=== PATIENT | female | born 1960 | race Caucasian/White ===

== ENCOUNTER 2020-11-24 14:54 | Outpatient (REF) | payer MEDICAID, SELFPAY ==
--- NOTE | ~2020-11-24 | MM_ITS ---
EXAMINATION: MM SCREENING DIGITAL BREAST TOMOSYNTHESIS, BILATERAL CLINICAL INFORMATION: Screening. Asymptomatic. Benign left ultrasound guided biopsy 03/07/2019 (benign lymph node). The lifetime risk of breast cancer based on the Tyrer-Cuzick Model is 8%. COMPARISON: Mammography: 03/07/2019, 02/26/2019 (new baseline). TECHNIQUE: Digital breast tomosynthesis is performed in both the craniocaudal and mediolateral oblique views along with computer-aided detection (CAD). Synthesized 2D images are generated from the tomosynthesis. FINDINGS: There are scattered areas of fibroglandular density (ACR BI-RADS breast composition Category b). Breast tissue composition borders on heterogeneously dense. Parenchymal pattern is similar to prior exam. There is biopsy clip marker overlying benign nodule consistent with intramammary node anterior upper outer left breast. There is a benign coarse calcification anterior 1:00 left breast. Some other scattered punctate benign calcifications are again seen in each breast. The axilla and skin contours are unremarkable. MM/MM tomosynthesis screening BI IMPRESSION: No mammographic evidence of malignancy. ASSESSMENT: BI-RADS 2: Benign RECOMMENDATION: Routine annual mammography screening. This patient's information was entered into a reminder system with a target due date for their next mammogram.
== END 2020-11-24 14:55 | disposition home or self-care (01) ==
LOC: HO.MAMMO 14:54
PROVIDERS: Visit Provider Internal Medicine
DX: Z12.31 Encounter for screening mammogram for malignant neoplasm of breast (principal)
CPT/HCPCS: 77063; 77067

== ENCOUNTER 2021-09-07 14:01 | Outpatient (REF) | payer MEDICAID, SELFPAY ==
[2021-09-07 15:22] LABS: MANUAL DIFF FLAG NO
[2021-09-07 16:05] LABS: Basophils Absolute Auto 0.1 X10*3/uL (0.0-0.2); Basophils Percent Auto 0.4 % (0-2); Eosinophils Absolute Auto 0.1 X10*3/uL (0.0-0.4); Eosinophils Percent Auto 0.4 % (0-4); Hematocrit 46.4 % (37.0-47.0); Hemoglobin 15.4 g/dl (12.0-16.0); Imm Gran Abs Auto 0.05 X10*3/uL (0.00-0.03); Imm Gran Pct Auto 0.4 % (0.0-0.4); Lymphocytes Absolute Auto 1.8 X10*3/uL (1.2-4.9); Lymphocytes Percent Auto 15.2 % (20-40); Mean Corpuscular HGB Conc 33.2 g/dl (31.0-35.0); Mean Corpuscular Hemoglobin 30.4 pg (27.0-33.0); Mean Corpuscular Volume 91.5 fL (80.0-98.0); Mean Platelet Volume 9.8 fL (9.4-12.3); Monocytes Absolute Auto 0.6 X10*3/uL (0.1-1.2); Monocytes Percent Auto 5.2 % (2-11); Neutrophils Absolute Auto 9.3 x10*3/uL (2.0-8.3); Neutrophils Percent Auto 78.4 % (45-73); Platelet Count 230 X10*3/uL (160-400); Red Blood Count 5.07 X10*6/uL (4.20-5.50); Red Cell Distribution Width 12.9 % (11.0-16.0); White Blood Count 11.8 X10*3/uL (4.8-10.8)
[2021-09-07 16:28] LABS: Alanine Aminotransferase 22 U/L (0-31); Albumin Level 4.7 g/dL (3.5-5.0); Alkaline Phosphatase 66 U/L (39-117); Anion Gap 14 (12-20); Aspartate Amino Transferase 22 U/L (5-31); Bilirubin Total 0.7 mg/dL (0.0-1.0); Blood Urea Nitrogen 14 mg/dL (9-16); C Reactive Protein 1.99 mg/dL (< or = 0.50); Calcium 10.1 mg/dL (8.4-10.2); Carbon Dioxide 28 mmol/L (22-29); Chloride 103 mmol/L (96-108); Estimated Glomerular Filt Rate > 60; Glucose Random 117 mg/dL (60-115); Potassium 4.8 mmol/L (3.3-5.1); Sodium 140 mmol/L (135-145); Total Protein 7.8 g/dL (6.5-8.0)
[2021-09-07 16:51] LABS: TSH reflex Free T4 2.38 uIU/mL (0.32-4.0)
[2021-09-09 21:17] LABS: Transglutaminase Ab IgG <1.0 U/mL; Transglutaminase IgA <1.0 U/mL
== END 2021-09-07 14:02 | disposition home or self-care (01) ==
LOC: HO.LAB 14:01
PROVIDERS: PCP Internal Medicine; Referring Provider Internal Medicine; Visit Provider Nurse Practitioner
DX: R19.7 Diarrhea, unspecified (principal); R10.9 Unspecified abdominal pain; N30.11 Interstitial cystitis (chronic) with hematuria
CPT/HCPCS: 36415; 80053; 84443; 85025; 86003; 86140; 86364; 99202

== ENCOUNTER 2021-10-19 14:18 | Outpatient (REF) | payer MEDICAID, SELFPAY ==
[2021-10-19 16:21] LABS: Appearance Urine CLEAR; Color Urine YELLOW; Glucose Urine UA NEG (NEG); Leukocyte Esterase Urine TRACE (NEG); Nitrite Urine NEG (NEG); UACC Culture Trigger NO; Urine Blood 1+ (NEG); Urine Ketones NEG (NEG); Urine Protein NEG (NEG-TRACE)
[2021-10-19 16:43] LABS: Squamous Epithelial Cell Urine TRACE /LPF; WBC Urine 0-2 /HPF (0-4)
== END 2021-10-19 14:19 | disposition home or self-care (01) ==
LOC: HO.LAB 14:18
PROVIDERS: PCP Internal Medicine; Referring Provider Internal Medicine; Visit Provider Nurse Practitioner
DX: R19.7 Diarrhea, unspecified (principal); R79.82 Elevated C-reactive protein (CRP)
CPT/HCPCS: 81001; 99212

== ENCOUNTER 2021-11-11 15:21 | Outpatient (REF) | payer MEDICAID, SELFPAY ==
[2021-11-17 00:12] LABS: Calprotectin, Fecal 8 mcg/g
== END 2021-11-11 15:22 | disposition home or self-care (01) ==
LOC: HO.LNP 15:21
PROVIDERS: Visit Provider Nurse Practitioner
DX: R19.7 Diarrhea, unspecified (principal)
CPT/HCPCS: 83993

== ENCOUNTER → 2021-11-26 16:12 | Outpatient (BNVA) | payer MEDICAID, SELFPAY | PROVIDERS: PCP Internal Medicine; Visit Provider Nurse Practitioner | DX: R19.7 Diarrhea, unspecified (principal); N30.11 Interstitial cystitis (chronic) with hematuria | CPT/HCPCS: 99212 ==

== ENCOUNTER → 2022-02-03 14:38 | Outpatient (BNVA) | payer MEDICAID, SELFPAY | PROVIDERS: PCP Internal Medicine; Visit Provider Nurse Practitioner | DX: R19.7 Diarrhea, unspecified (principal); R10.9 Unspecified abdominal pain; N30.11 Interstitial cystitis (chronic) with hematuria | CPT/HCPCS: 99212 ==

== ENCOUNTER → 2022-04-07 15:40 | Outpatient (BNVA) | payer MEDICAID, SELFPAY | PROVIDERS: PCP Internal Medicine; Referring Provider Internal Medicine; Visit Provider Nurse Practitioner | DX: R19.7 Diarrhea, unspecified (principal); R10.9 Unspecified abdominal pain; R79.82 Elevated C-reactive protein (CRP); Z53.20 Procedure and treatment not carried out because of patient's decision for unspecified reasons | CPT/HCPCS: 99212 ==

== ENCOUNTER → 2022-09-22 15:55 | Outpatient (BNVA) | payer MEDICAID, SELFPAY | PROVIDERS: PCP Internal Medicine; Visit Provider Nurse Practitioner | DX: R19.7 Diarrhea, unspecified (principal) | CPT/HCPCS: 99212 ==

== ENCOUNTER → 2022-11-17 15:27 | Outpatient (BNVA) | payer MEDICAID, SELFPAY | PROVIDERS: PCP Internal Medicine; Visit Provider Nurse Practitioner | DX: R19.7 Diarrhea, unspecified (principal) | CPT/HCPCS: 99212 ==

== ENCOUNTER 2023-03-08 14:24 | Outpatient (AMB) | payer MEDICAID, SELFPAY ==
--- NOTE | 2023-03-08 14:32 | MHC.OFFVIS ---
Intake Vital Signs 03/08/23 14:59 Height 5 ft 3 in Weight 173 lb 4.533 oz BMI 30.7 BP 154/70 H Blood Pressure Location Lt brachial Position Sitting Pulse 71 Intake Visit Reasons: 3 mnth follow up Intake Note: Patient presents to in office visit today in 3 months follow up of abdominal pain. CC: Patient reports she's had more constipation lately and having trouble swallowing pills. She also reports occasional abdominal pain. Denies other GI symptoms today. [employer] Airspace Control Officer Required: No Accompanied by: Self / Same As Patient Allergies procaine [From NOVOCAIN] Allergy (Severe, Verified 03/08/23 15:08) ANGIOEDEMA latex [LATEX] Allergy (Intermediate, Verified 03/08/23 15:08) RASH nylon Allergy (Intermediate, Verified 03/08/23 15:08) Anaphylaxis penicillin V Allergy (Unknown, Verified 03/08/23 15:08) Abdominal Pain iodine Adverse Reaction (Severe, Verified 03/08/23 15:08) cramps dicyclomine Adverse Reaction (Intermediate, Verified 03/08/23 15:08) Dizziness Latex Gloves Allergy (Unknown, Uncoded 11/26/21 16:17) Hives Novocain Allergy (Unknown, Uncoded 11/26/21 16:17) swelling HPI 3 mnth follow up HPI Details Assessment & Plan (1) Diarrhea: Code(s): R19.7 - Diarrhea, unspecified Plan: She is doing better on the creon, her stools are mostly soft and she only has occasional diarrhea. She also is taking the Carafate 3 a day. We discuss the effects of alcohol sugars on IBS and she was unaware of this and does use some sugar free products. We also discussed FODMAP diet now this also can contribute to bowel irritability. She is willing to experiment and look into these things and continue with her current regimen. ROV 3 mos. TODAY'S VISIT She has not had any diarrhea! However, she has occasional CIC. She has trouble swallowing the carafate so we discuss crushing or dissolving it - but I also think we should cut this back since she is having more CIC. She also continues on her creon. She is managing her CIC with prune juice which she likes. She has been taking IB guard at night, and since she is gassy I suggest simethicone otc. 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 ROV 6 mos. [facility] Surgical History H/O adenoidectomy H/O breast biopsy Family History Mother Colon cancer Social History (Updated 03/08/23 @ 15:07 by CAROLANN Meza) Alcohol intake: former Patient Tobacco Use Status: Never used Tobacco Review of Systems Const Denies fatigue, Denies fever(s), Denies night sweats, Denies poor appetite and Denies weight loss Eyes Details: glasses Reports requires corrective lenses ENT Reports Normal hearing present, Denies dental pain, Denies dysphagia, Denies hearing loss, Denies mouth pain, Denies odynophagia, Denies throat swelling, Denies tongue swelling and Reports other (Dentition adequate) Card Reports no additional complaints Resp Reports no additional complaints GI Denies abdominal pain, Denies melena, Reports bloating, Denies hematochezia, Reports constipation, Denies GI cramping, Denies dysphagia, Denies excessive flatus, Denies early satiety, Denies heartburn, Denies diarrhea, Denies nausea, Denies odynophagia, Denies vomiting and Denies hematemesis Skin/Breast Denies pruritus, Denies lesions, Denies rash and Denies jaundice Neuro Reports Normal hearing present and Denies Abnormal speech present Endo Denies fatigue Aller/Immun Denies throat swelling and Denies tongue swelling Physical Exam Vital Signs: Last Vital Signs Pulse 71 03/08/23 14:59 BP 154/70 H 03/08/23 14:59 BMI result Body Mass Index 30.7 Const General: cooperative, no acute distress, well developed and well groomed Nutritional Appearance: well nourished and obese Orientation/consciousness: oriented to person, oriented to place and oriented to time Limitations: No language barrier HEENT Head: Yes normocephalic and Yes atraumatic Eyes General: appearance normal, both eyes and all related structures Pupils: Equal, round and reactive pupils present Neck Neck: Yes normal visual inspection and Yes no lymphadenopathy Thyroid: Thyroid normal Resp Effort & Inspection: normal respiratory effort and able to speak in complete sentences Auscultation: clear to auscultation bilaterally Cardio Rate: regular rate Rhythm: regular rhythm Heart sounds: Normal, physiologic split S2 sound present Peripheral pulses: radial pulses present and posterior tibial pulses present GI Inspection: No distended, No Abdominal panniculus present and Yes obesity Palpation (GI): Soft to palpation, nontender, no guarding, not rigid and No hepatosplenomegaly present Percussion: Yes normal to percussion Auscultation: normal bowel sounds Rectal Exam - Female: deferred Skin General skin exam: no rashes or lesions noted, turgor normal, skin not dry, no jaundice, No spider nevi and no striae Rashes: no rashes Nails: normal Neuro General: oriented to person, oriented to place and oriented to time Cranial nerves: Yes Equal, round and reactive pupils present and Yes Normal hearing present Speech: No Abnormal speech present Extrem General: Yes normal to inspection, No clubbing, No cyanosis and No edema Psych Appearance: grossly normal and well kempt Mental Status: mental status grossly normal Speech and movement: Normal speech and movement present Affect: normal affect Attitude: cooperative Thought process: Normal thought process present and not confabulating Thought content: Normal thought content present Insight: Fair insight present (Psych) Judgement: Fair judgement present (Psych) Assessment & Plan Assessment & Plan (1) Diarrhea: Code(s): R19.7 - Diarrhea, unspecified Plan: She has not had any diarrhea! However, she has occasional CIC. She has trouble swallowing the carafate so we discuss crushing or dissolving it - but I also think we should cut this back since she is having more CIC. She also continues on her creon. She is managing her CIC with prune juice which she likes. She has been taking IB guard at night, and since she is gassy I suggest simethicone otc. 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 ROV 6 mos. (2) Colonoscopy refused: Comment: r/t fear of her nylon allergy - waiting for Cologuard coverage Code(s): Z53.20 - Procedure and treatment not carried out because of patient's decision for unspecified reasons (3) Elevated C-reactive protein (CRP): Comment: Stool calprotectin not elevated so this is not from a GI system aeb Code(s): R79.82 - Elevated C-reactive protein (CRP) Medications: Refilled [id number] 36,000-114,000- 180,000 unit (Creon) administer with meals and/or snacks 1 cap PO QID 120 caps 6RF R19.7 - Diarrhea, unspecified sucralfate 3 grams (3 x 1 gram) PO DAILY 90 tabs 6RF R19.7 - Diarrhea, unspecified Coding Level of Care Code Est Pt Level 3 (30247) Diagnoses Diarrhea R19.7 Colonoscopy refused Z53.20 Elevated C-reactive protein (CRP) R79.82
[2023-03-08 14:59] VITALS: BP 154/70; PULSE 71; BMI 30.7
== END 2023-03-08 15:19 | disposition home or self-care (01) ==
PROVIDERS: PCP Internal Medicine; Visit Provider Nurse Practitioner
DX: R19.7 Diarrhea, unspecified (principal); Z53.20 Procedure and treatment not carried out because of patient's decision for unspecified reasons; R79.82 Elevated C-reactive protein (CRP)
CPT/HCPCS: 99213

== ENCOUNTER → 2023-03-08 14:24 | Outpatient (BNVA) | payer MEDICAID, SELFPAY | PROVIDERS: PCP Internal Medicine; Visit Provider Nurse Practitioner | DX: R19.7 Diarrhea, unspecified (principal); R79.82 Elevated C-reactive protein (CRP); Z53.20 Procedure and treatment not carried out because of patient's decision for unspecified reasons | CPT/HCPCS: 99212 ==

== ENCOUNTER 2023-09-07 15:01 | Outpatient (AMB) | payer MEDICAID, SELFPAY ==
--- NOTE | 2023-09-07 15:03 | MHC.OFFVIS ---
Intake Vital Signs 09/07/23 15:14 Height 5 ft 3 in Weight 186 lb 8.177 oz BMI 33.0 BP 171/70 H Blood Pressure Location Lt brachial Position Sitting Pulse 65 Intake Visit Reasons: 6 month follow up Intake Note: Patient presents to in office visit today in 6 months follow up of abdominal pain. CC: Patient reports she is doing well. Denies other GI symptoms today. Food And Beverage Cashier Required: No Accompanied by: Self / Same As Patient Allergies procaine [From NOVOCAIN] Allergy (Severe, Verified 09/07/23 15:21) ANGIOEDEMA latex [LATEX] Allergy (Intermediate, Verified 09/07/23 15:21) RASH nylon Allergy (Intermediate, Verified 09/07/23 15:21) Anaphylaxis penicillin V Allergy (Unknown, Verified 09/07/23 15:21) Abdominal Pain iodine Adverse Reaction (Severe, Verified 09/07/23 15:21) cramps dicyclomine Adverse Reaction (Intermediate, Verified 09/07/23 15:21) Dizziness Latex Gloves Allergy (Unknown, Uncoded 11/26/21 16:17) Hives Novocain Allergy (Unknown, Uncoded 11/26/21 16:17) swelling HPI 6 month follow up HPI Details Assessment & Plan (1) Diarrhea: Code(s): R19.7 - Diarrhea, unspecified Plan: She has not had any diarrhea! However, she has occasional CIC. She has trouble swallowing the carafate so we discuss crushing or dissolving it - but I also think we should cut this back since she is having more CIC. She also continues on her creon. She is managing her CIC with prune juice which she likes. She has been taking IB guard at night, and since she is gassy I suggest simethicone otc. 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 ROV 6 mos. (2) Colonoscopy refused: Comment: r/t fear of her nylon allergy - waiting for Cologuard coverage Code(s): Z53.20 - Procedure and treatment not carried out because of patient's decision for unspecified reasons (3) Elevated C-reactive protein (CRP): Comment: Stool calprotectin not elevated so this is not from a GI system aeb Code(s): R79.82 - Elevated C-reactive protein (CRP) Medications: Refilled frdmzc-qqapyiga-jk ylase 36,000-114,0 00- 180,000 unit ( Creon) administ er with meals and/ or snacks 1 cap PO QID 120 caps 6RF R19.7 - Diarrhea, unspecified sucralfate 3 grams (3 x 1 gra m) PO DAILY 90 tab s 6RF R19.7 - Diarrhea, unspecified TODAY'S VISIT She has not tried the gas x yet, she continues on her Creon, TUMS, and sucralfate with occasional imodium. She will consider trying to Gas-X but with this she is satisfied with her GI regimen. Return office visit in 6 months [facility] Surgical History H/O adenoidectomy H/O breast biopsy Family History Mother Colon cancer Social History Alcohol intake: former Patient Tobacco Use Status: Never used Tobacco Review of Systems Const Denies fatigue, Denies fever(s), Denies night sweats, Denies poor appetite and Denies weight loss Eyes Details: glasses Reports requires corrective lenses ENT Reports Normal hearing present, Denies dental pain, Denies dysphagia, Denies hearing loss, Denies mouth pain, Denies odynophagia, Denies throat swelling, Denies tongue swelling and Reports other (Dentition adequate) Card Reports no additional complaints Resp Reports no additional complaints GI Details: Denies abdominal pain, Denies melena, Denies bloating, Denies hematochezia, Denies constipation, Denies GI cramping, Denies dysphagia, Denies excessive flatus, Denies early satiety, Reports heartburn, Reports diarrhea, Denies nausea, Denies odynophagia, Denies vomiting and Denies hematemesis Skin/Breast Denies pruritus, Denies lesions, Denies rash and Denies jaundice Neuro Reports Normal hearing present and Denies Abnormal speech present Endo Denies fatigue Aller/Immun Denies throat swelling and Denies tongue swelling Physical Exam Vital Signs: Last Vital Signs Pulse 65 09/07/23 15:14 BP 171/70 H 09/07/23 15:14 BMI result Body Mass Index 33.0 Const General: cooperative, no acute distress, well developed and well groomed Nutritional Appearance: well nourished and obese Orientation/consciousness: oriented to person, oriented to place and oriented to time Limitations: No language barrier HEENT Head: Yes normocephalic and Yes atraumatic Eyes General: appearance normal, both eyes and all related structures Pupils: Equal, round and reactive pupils present Neck Neck: Yes normal visual inspection and Yes no lymphadenopathy Thyroid: Thyroid normal Resp Effort & Inspection: normal respiratory effort and able to speak in complete sentences Auscultation: clear to auscultation bilaterally Cardio Rate: regular rate Rhythm: regular rhythm Heart sounds: Normal, physiologic split S2 sound present Peripheral pulses: radial pulses present and posterior tibial pulses present GI Inspection: No distended, No Abdominal panniculus present and Yes obesity Palpation (GI): Soft to palpation, nontender, no guarding, not rigid and No hepatosplenomegaly present Percussion: Yes normal to percussion Auscultation: normal bowel sounds Rectal Exam - Female: deferred Skin General skin exam: no rashes or lesions noted, turgor normal, skin not dry, no jaundice, No spider nevi and no striae Rashes: no rashes Nails: normal Neuro General: oriented to person, oriented to place and oriented to time Cranial nerves: Yes Equal, round and reactive pupils present and Yes Normal hearing present Speech: No Abnormal speech present Extrem General: Yes normal to inspection, No clubbing, No cyanosis and No edema Psych Appearance: grossly normal and well kempt Mental Status: mental status grossly normal Speech and movement: Normal speech and movement present Affect: normal affect Attitude: cooperative Thought process: Normal thought process present and not confabulating Thought content: Normal thought content present Insight: Fair insight present (Psych) Judgement: Fair judgement present (Psych) Assessment & Plan Assessment & Plan (1) Diarrhea: Code(s): R19.7 - Diarrhea, unspecified (2) Abdominal cramping: Code(s): R10.9 - Unspecified abdominal pain (3) Elevated C-reactive protein (CRP): Comment: Stool calprotectin not elevated so this is not from a GI system aeb Code(s): R79.82 - Elevated C-reactive protein (CRP) Plan She has not tried the gas x yet, she continues on her Creon, TUMS, and sucralfate with occasional imodium. She will consider trying to Gas-X but with this she is satisfied with her GI regimen. Return office visit in 6 months Medications: Refilled sucralfate 3 grams (3 x 1 gram) PO DAILY 90 tabs 6RF R19.7 - Diarrhea, unspecified [id number] 36,000-114,000- 180,000 unit (Creon) administer with meals and/or snacks 1 cap PO QID 120 caps 6RF R19.7 - Diarrhea, unspecified Coding Level of Care Code Est Pt Level 3 (94892) Diagnoses Diarrhea R19.7 Abdominal cramping R10.9 Elevated C-reactive protein (CRP) R79.82
[2023-09-07 15:14] VITALS: BP 171/70; PULSE 65; BMI 33.0
== END 2023-09-07 15:34 | disposition home or self-care (01) ==
PROVIDERS: PCP Internal Medicine; Visit Provider Nurse Practitioner
DX: R19.7 Diarrhea, unspecified (principal); R10.9 Unspecified abdominal pain; R79.82 Elevated C-reactive protein (CRP)
CPT/HCPCS: 99213

== ENCOUNTER → 2023-09-07 15:01 | Outpatient (BNVA) | payer MEDICAID, SELFPAY | PROVIDERS: PCP Internal Medicine; Visit Provider Nurse Practitioner | DX: R19.7 Diarrhea, unspecified (principal); R10.9 Unspecified abdominal pain; R79.82 Elevated C-reactive protein (CRP) | CPT/HCPCS: 99212 ==

== ENCOUNTER 2024-01-24 15:13 | Outpatient (REF) | payer MEDICAID, SELFPAY ==
--- NOTE | ~2024-01-24 | MM_ITS ---
EXAMINATION: MM SCREENING DIGITAL BREAST TOMOSYNTHESIS, BILATERAL CLINICAL INFORMATION: Screening. Asymptomatic. COMPARISON: Mammography: Comparison with available prior's. TECHNIQUE: Digital breast tomosynthesis is performed in both the craniocaudal and mediolateral oblique views along with computer-aided detection (CAD). Synthesized 2D images are generated from the tomosynthesis. FINDINGS: The breasts are heterogeneously dense, which may obscure small masses (ACR BI-RADS breast composition Category c). Marker clip in the upper outer left breast. There are no significant masses, abnormal calcifications, or other abnormalities. MM/MM tomosynthesis screening BI IMPRESSION: No mammographic evidence of malignancy. ASSESSMENT: BI-RADS BI-RADS 2 - Benign Findings RECOMMENDATION: Routine annual mammography screening. 1 year F/U This examination should not preclude the clinical evaluation of a suspicious palpable abnormality. This patient's information was entered into a reminder system with a target due date for their next mammogram. Electronically signed by: Elizabeth Roberts DO 02/21/2024 09:38 PM EDT
== END 2024-01-24 15:14 | disposition home or self-care (01) ==
LOC: HO.MAMMO 15:13
PROVIDERS: PCP Internal Medicine; Visit Provider Internal Medicine
DX: Z12.31 Encounter for screening mammogram for malignant neoplasm of breast (principal)
CPT/HCPCS: 77063; 77067

== ENCOUNTER → 2024-01-24 15:15 | Outpatient (BNV) | payer MEDICAID, SELFPAY | PROVIDERS: PCP Internal Medicine; Visit Provider Internal Medicine | DX: Z12.31 Encounter for screening mammogram for malignant neoplasm of breast (principal) | CPT/HCPCS: 77063; 77067 ==

== ENCOUNTER 2024-05-16 16:02 | Outpatient (AMB) | payer MEDICAID, SELFPAY ==
[2024-05-16 16:06] VITALS: BP 165/72; PULSE 69; BMI 32.6
--- NOTE | 2024-05-16 16:06 | A.OFFVIS_ITS ---
Vital Signs 05/16/24 16:06 Height 5 ft 3 in Weight 183 lb 13.848 oz BMI 32.6 BP 165/72 H Blood Pressure Location Lt brachial Position Sitting Pulse 69 Intake Visit Reasons: 6 month follow up IBS r/s 03/07 Intake Note: Ree presents in office today in 6 months follow up of IBS. CC: Patient reports doing well unless she eats something she shouldn't eat. 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 Required: No Accompanied by: Self / Same As Patient Allergies procaine [From NOVOCAIN] Allergy (Severe, Verified 05/16/24 16:06) ANGIOEDEMA latex [LATEX] Allergy (Intermediate, Verified 05/16/24 16:06) RASH nylon Allergy (Intermediate, Verified 05/16/24 16:06) Anaphylaxis penicillin V Allergy (Unknown, Verified 05/16/24 16:06) Abdominal Pain iodine Adverse Reaction (Severe, Verified 05/16/24 16:06) cramps dicyclomine Adverse Reaction (Intermediate, Verified 05/16/24 16:06) Dizziness Latex Gloves Allergy (Unknown, Uncoded 11/26/21 16:17) Hives Novocain Allergy (Unknown, Uncoded 11/26/21 16:17) swelling HPI HPI 6 month follow up IBS r/s 03/07: Details: Assessment & Plan (1) Diarrhea: Code(s): R19.7 - Diarrhea, unspecified (2) Abdominal cramping: Code(s): R10.9 - Unspecified abdominal pain (3) Elevated C-reactive protein (CRP): Comment: Stool calprotectin not elevated so this is not from a GI system aeb Code(s): R79.82 - Elevated C-reactive protein (CRP) Plan She has not tried the gas x yet, she continues on her Creon, TUMS, and sucralfate with occasional imodium. She will consider trying to Gas-X but with this she is satisfied with her GI regimen. 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 She continues to do well on her sucralfate and creon. She is now able to eat salads and most veggies which she could not for many years. ROV 6 mos. [facility] Surgical History H/O adenoidectomy H/O breast biopsy Family History Mother Colon cancer Social History Alcohol intake: former Patient Tobacco Use Status: Never used Tobacco Review of Systems Const Denies fatigue, Denies fever(s), Denies night sweats, Denies poor appetite and Denies weight loss Eyes Details: glasses Reports requires corrective lenses ENT Reports Normal hearing present, Denies dental pain, Denies dysphagia, Denies hearing loss, Denies mouth pain, Denies odynophagia, Denies throat swelling, Denies tongue swelling and Reports other (Dentition adequate) Card Reports no additional complaints Resp Reports no additional complaints GI Details: Denies abdominal pain, Denies melena, Reports bloating, Denies hematochezia, Denies constipation, Denies GI cramping, Denies dysphagia, Denies excessive flatus, Denies early satiety, Reports heartburn, Reports diarrhea, Denies nausea, Denies odynophagia, Denies vomiting and Denies hematemesis Skin/Breast Denies pruritus, Denies lesions, Denies rash and Denies jaundice Neuro Reports Normal hearing present and Denies Abnormal speech present Endo Denies fatigue Aller/Immun Denies throat swelling and Denies tongue swelling Physical Exam Vital Signs: Last Vital Signs Pulse 69 05/16/24 16:06 BP 165/72 H 05/16/24 16:06 BMI result Body Mass Index 32.6 Const General: cooperative, no acute distress, well developed and well groomed Nutritional Appearance: well nourished and obese Orientation/consciousness: oriented to person, oriented to place and oriented to time Limitations: No language barrier HEENT Head: Yes normocephalic and Yes atraumatic Eyes General: appearance normal, both eyes and all related structures Pupils: Equal, round and reactive pupils present Neck Neck: Yes normal visual inspection and Yes no lymphadenopathy Thyroid: Thyroid normal Resp Effort & Inspection: normal respiratory effort and able to speak in complete sentences Auscultation: clear to auscultation bilaterally Cardio Rate: regular rate Rhythm: regular rhythm Heart sounds: Normal, physiologic split S2 sound present Peripheral pulses: radial pulses present and posterior tibial pulses present GI Inspection: No distended, No Abdominal panniculus present and Yes obesity Palpation (GI): Soft to palpation, nontender, no guarding, not rigid and No hepatosplenomegaly present Percussion: Yes normal to percussion Auscultation: normal bowel sounds Rectal Exam - Female: deferred Skin General skin exam: no rashes or lesions noted, turgor normal, skin not dry, no jaundice, No spider nevi and no striae Rashes: no rashes Nails: normal Neuro General: oriented to person, oriented to place and oriented to time Cranial nerves: Yes Equal, round and reactive pupils present and Yes Normal hearing present Speech: No Abnormal speech present Extrem General: Yes normal to inspection, No clubbing, No cyanosis and No edema Psych Appearance: grossly normal and well kempt Mental Status: mental status grossly normal Speech and movement: Normal speech and movement present Affect: normal affect Attitude: cooperative Thought process: Normal thought process present and not confabulating Thought content: Normal thought content present Insight: Fair insight present (Psych) Judgement: Fair judgement present (Psych) Assessment & Plan Assessment & Plan (1) Diarrhea: Code(s): R19.7 - Diarrhea, unspecified Category: Medical (2) Colonoscopy refused: Comment: r/t fear of her nylon allergy - waiting for Cologuard coverage Code(s): Z53.20 - Procedure and treatment not carried out because of patient's decision for unspecified reasons Category: Medical Plan 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 She continues to do well on her sucralfate and creon. She is now able to eat salads and most veggies which she could not for many years. She is willing to rediscuss colonoscopy in 6 months as she knows she really needs have this done to protect her future health. ROV 6 mos. Medications: Refilled sucralfate 3 grams (3 x 1 gram) PO DAILY 270 tabs 0RF R19.7 - Diarrhea, unspecified quwgbj-oukqpjbq-xpzulem 36,000-114,000- 180,000 unit (Creon) administer with meals and/or snacks 1 cap PO QID 120 caps 6RF R19.7 - Diarrhea, unspecified Coding Level of Care Code Est Pt Level 3 (41002) Diagnoses Diarrhea R19.7 Colonoscopy refused Z53.20
== END 2024-05-16 16:51 | disposition home or self-care (01) ==
PROVIDERS: PCP Internal Medicine; Visit Provider Nurse Practitioner
DX: R19.7 Diarrhea, unspecified (principal); Z53.20 Procedure and treatment not carried out because of patient's decision for unspecified reasons
CPT/HCPCS: 99213

== ENCOUNTER → 2024-05-16 16:02 | Outpatient (BNVA) | payer MEDICAID, SELFPAY | PROVIDERS: PCP Internal Medicine; Visit Provider Nurse Practitioner | DX: R19.7 Diarrhea, unspecified (principal); Z53.20 Procedure and treatment not carried out because of patient's decision for unspecified reasons | CPT/HCPCS: 99212 ==

== ENCOUNTER 2024-11-12 15:58 | Outpatient (AMB) | payer MEDICAID, SELFPAY ==
--- NOTE | 2024-11-12 15:59 | MHC.OFFVIS ---
Vital Signs 11/12/24 16:10 Height 5 ft 3 in Weight 176 lb BMI 31.2 BP 118/54 L Blood Pressure Location Rt brachial Position Sitting Pulse 74 Pulse Source Pulse Oximeter Pulse Oximetry (%) 98 Oxygen Delivery Method Room Air Intake Visit Reasons: 6 months f/u IBS GERD Intake Note: Established patient for IBS + GERD mgmt. CC; C.O. chronic condition exacerbation and persistence. Pt reports IBS episodes have been more frequent due to increase in stress as well as dietary changes and inconsistencies. Pt would like to rediscuss probiotics and options for said supplement. GERD is fairly well controlled per pt. Grape Pruner Required: No Accompanied by: Self / Same As Patient Allergies procaine [From NOVOCAIN] Allergy (Severe, Verified 11/12/24 16:03) ANGIOEDEMA latex [LATEX] Allergy (Intermediate, Verified 11/12/24 16:03) RASH nylon Allergy (Intermediate, Verified 11/12/24 16:03) Anaphylaxis penicillin V Allergy (Unknown, Verified 11/12/24 16:03) Abdominal Pain iodine Adverse Reaction (Severe, Verified 11/12/24 16:03) cramps dicyclomine Adverse Reaction (Intermediate, Verified 11/12/24 16:03) Dizziness HPI HPI 6 months f/u IBS GERD: Details: Assessment & Plan (1) Diarrhea: Code(s): R19.7 - Diarrhea, unspecified Category: Medical (2) Colonoscopy refused: Comment: r/t fear of her nylon allergy - waiting for Cologuard coverage Code(s): Z53.20 - Procedure and treatment not carried out because of patient's decision for unspecified reasons Category: Medical Plan 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 She continues to do well on her sucralfate and creon. She is now able to eat salads and most veggies which she could not for many years. She is willing to rediscuss colonoscopy in 6 months as she knows she really needs have this done to protect her future health. ROV 6 mos. Medications: Refilled sucralfate 3 grams (3 x 1 gram) PO DAILY 270 tabs 0RF R19.7 - Diarrhea, unspecified iewgdb-gvpxoowi-tlccdwy 36,000-114,000- 180,000 unit (Creon) administer with meals and/or snacks 1 cap PO QID 120 caps 6RF R19.7 - Diarrhea, unspecified TODAYS VISIT Her is on his second round of chemo for glioblastoma, They are trying to get him off of prednisone as he is developing some Aleksey-like sx. It appears the tumor is shrinking and there are no mets. With this she is eating on the run and her diarrhea is not good. I think it is time to move on and trial either Viberzi or Lotronex. Her PCP rx'ed COloguard, but she did not do it r/t diarrhea, maybe we can reconsider this when we get a good medication regimen. ROV 6 weeks. PFSH Surgical History H/O adenoidectomy H/O breast biopsy Family History Mother Colon cancer Social History Alcohol intake: former Patient Tobacco Use Status: Never used Tobacco Review of Systems Const Denies fatigue, Denies fever(s), Denies night sweats, Denies poor appetite and Denies weight loss Eyes Details: glasses Reports requires corrective lenses ENT Reports Normal hearing present, Denies dental pain, Denies dysphagia, Denies hearing loss, Denies mouth pain, Denies odynophagia, Denies throat swelling, Denies tongue swelling and Reports other (Dentition adequate) Card Reports no additional complaints Resp Reports no additional complaints GI Details: Denies abdominal pain, Denies melena, Denies bloating, Denies hematochezia, Denies constipation, Reports GI cramping, Denies dysphagia, Denies excessive flatus, Denies early satiety, Denies heartburn, Reports diarrhea, Denies nausea, Denies odynophagia, Denies vomiting and Denies hematemesis Skin/Breast Denies pruritus, Denies lesions, Denies rash and Denies jaundice Neuro Reports Normal hearing present and Denies Abnormal speech present Psych Reports anxiety Endo Denies fatigue Aller/Immun Denies throat swelling and Denies tongue swelling Physical Exam Vital Signs: Last Vital Signs Pulse 74 11/12/24 16:10 BP 118/54 L 11/12/24 16:10 Pulse Ox 98 11/12/24 16:10 Oxygen Delivery Method Room Air 11/12/24 16:10 BMI result Body Mass Index 31.2 Const General: cooperative, no acute distress, well developed and well groomed Nutritional Appearance: well nourished and obese Orientation/consciousness: oriented to person, oriented to place and oriented to time Limitations: No language barrier HEENT Head: Yes normocephalic and Yes atraumatic Eyes General: appearance normal, both eyes and all related structures Pupils: Equal, round and reactive pupils present Neck Neck: Yes normal visual inspection and Yes no lymphadenopathy Thyroid: Thyroid normal Resp Effort & Inspection: normal respiratory effort and able to speak in complete sentences Auscultation: clear to auscultation bilaterally Cardio Rate: regular rate Rhythm: regular rhythm Heart sounds: Normal, physiologic split S2 sound present Peripheral pulses: radial pulses present and posterior tibial pulses present GI Inspection: No distended, No Abdominal panniculus present and Yes obesity Palpation (GI): Soft to palpation, nontender, no guarding, not rigid and No hepatosplenomegaly present Percussion: Yes normal to percussion Auscultation: normal bowel sounds Rectal Exam - Female: deferred Skin General skin exam: no rashes or lesions noted, turgor normal, skin not dry, no jaundice, No spider nevi and no striae Rashes: no rashes Nails: normal Neuro General: oriented to person, oriented to place and oriented to time Cranial nerves: Yes Equal, round and reactive pupils present and Yes Normal hearing present Speech: No Abnormal speech present Extrem General: Yes normal to inspection, No clubbing, No cyanosis and No edema Psych Appearance: grossly normal and well kempt Mental Status: mental status grossly normal Speech and movement: Normal speech and movement present Affect: normal affect Attitude: cooperative Thought process: Normal thought process present and not confabulating Thought content: Normal thought content present Insight: Good insight present (Psych) Judgement: Good judgement present (Psych) Assessment & Plan Assessment & Plan (1) Diarrhea: Code(s): R19.7 - Diarrhea, unspecified Category: Medical (2) Colonoscopy refused: Comment: r/t fear of her nylon allergy - waiting for Cologuard coverage Code(s): Z53.20 - Procedure and treatment not carried out because of patient's decision for unspecified reasons Category: Medical (3) Abdominal cramping: Code(s): R10.9 - Unspecified abdominal pain Category: Medical (4) Irritable bowel syndrome with diarrhea: Code(s): K58.0 - Irritable bowel syndrome with diarrhea Category: Medical Plan Her is on his second round of chemo for glioblastoma, They are trying to get him off of prednisone as he is developing some Aleksey-like sx. It appears the tumor is shrinking and there are no mets. With this she is eating on the run and her diarrhea is not good. I think it is time to move on and trial either Viberzi or Lotronex. Her PCP rx'ed COloguard, but she did not do it r/t diarrhea, maybe we can reconsider this when we get a good medication regimen. ROV 6 weeks. Medications: New L. acidophilus/Bifid. animalis 2.5 billion cell (Daily Probiotic) 1 cap PO DAILY 30 caps 12RF R19.7 - Diarrhea, unspecified eluxadoline (Viberzi) must administer with a meal/food 75 mg PO BID 60 tabs 5RF K58.0 - Irritable bowel syndrome with diarrhea On Hold yjuumn-lenmdxic-ebfrtux 36,000-114,000- 180,000 unit (Creon) Hold Comment: Doctor's Order 1 cap PO QID 100 caps 0RF R19.7 - Diarrhea, unspecified sucralfate Hold Comment: Doctor's Order 3 grams (3 x 1 gram) PO DAILY 270 tabs 0RF R19.7 - Diarrhea, unspecified Coding Level of Care Code Est Pt Level 3 (97668) Diagnoses Diarrhea R19.7 Colonoscopy refused Z53.20 Abdominal cramping R10.9 Irritable bowel syndrome with diarrhea K58.0
[2024-11-12 16:10] VITALS: BP 118/54; PULSE 74; O2SAT 98; BMI 31.2
--- OUTSIDE RECORDS SUMMARY | 2024-11-12 18:51 | XMS_ITS | Encounter Summary ---
Author Organization [employer] Address [address] [place] [address] Care Team Providers Care Reinforced Concrete Inspector Name Role Phone Emily Stern MD Primary Care Provider [phone] Susan Chow RN Unavailable [phone] Reason for Visit * Reason Onset Date Comments Nurse Triage 06/11/2024 Encounter Details Date Type Department Care Team (Late st Contact Info) Description 06/11/2024 Telephone [facility] [address] [place] [address] Emily Stern MD [address], [place] [id number] Nurse Triage Social History Tobacco Use Types Packs/Day Years Used Date Smoking Tobacco: Never Smokeless Tobacco: Never Depression Answer Date Recorded Patient Health Questionnaire-9 Score 2 12/11/2023 Patient Health Questionnaire-9 Score 2 12/11/2023 Last PHQ-9: Questionnaire Data Not on file 0 12/11/2023 Housing Stability Answer Date Recorded What is your housing situation today? I have nir zhou 12/11/[address] you li ve. Do you have problems with any of the following? None of the above 12/11/2023 Food Insecurity Answer Date Recorded Within the past 12 months, y ou worried that your food would run out before you got money to buy more: Never True 12/11/2023 Within the past 12 months,th e food you bought just didn't last and you didn't have enough money to get more: Never True 01/2024 Transportation Answer Date Recorded In the past 12 months, has l ack of transportation kept you from medical appts, meetings, work or from getting things needed for daily living? No 12/11/2023 Utilities Answer Date Recorded In the past 12 months, has t he electric, gas, oil or water company threatened to shut off services in your home? No 12/11/2023 Depression Answer Date Recorded Patient Health Questionnaire-2 Score 0 12/11/2023 Internet Access Answer Date Recorded Internet Access Q1 Yes 02/05/2024 Internet Access Q2 I do not want or need it 07/2023 Comments Unknown Sex and Gender Information Value Date Recorded Sex Assigned at Female 04/04/2022 10:20 AM EDT Legal Sex Female 10:20 AM EDT Gender Identity Female 04/04/2022 10:20 AM EDT Sexual Orientation Straight 04/04/2022 10 :20 AM EDT documented as of this encounter Miscellaneous Notes * Telephone Encounter - Bessy Pascal RN - 06/11/2024 3:06 PM EST Called pt. She states that she has green discharge from nose with some drops of blood. This has been going on for over a week according to pt. Pt states that she has a right earache since last night.No fever. No drainage from ear. Offered pt. An appt. In [facility] for tomorrow and Pt. States she is requesting an antibiotic to be called to her pharmacy. Pt states I cannot come in to the office because my boyfriend has brain cancer and I take care of him all day everyday. Pt. States If I don'tget an antibiotic sent to my Pharmacy, then I am just going to have to suffer with my sinus infection and hope it doesn't get worse. When I offered home care recs pt. Stated that she has been doing e verything she can . Knowing that usually a pt. Is seen for sx. I did not make a televisit appt. With another provider. Please advise. Pt. Does have PCN listed under her allergies. * Telephone Encounter - Arecnio Cadet - 06/11/2024 3:02 PM EST Symptom: Sinus Symptoms Outcome: Schedule an appointment to be seen within 24 hours Reason: Caller denied all higher acuity questions The caller accepted this outcome. documented in this encounter Plan of Treatment Upcoming Encounters Date Type Department Care Team ([facility] st Contact Info) Description 03/05/2025 2:45 PM EDT Clinical Support [facility] [address] [place] [address] Susan Chow, SEDA [address] [place] [address] documented as of this encounter Visit Diagnoses Not on filedocumented in this encounter Additional Health Concerns Assessment Noted Time PHQ-9 Depression Total Score: 2 12/11/19 24 3:57 PM EDT documented as of this encounter Care Teams Reinforced Concrete Inspector Relationship Specialty Start Date End Date Emily Stern MD [address] [place] [address] PCP - General Internal Medicine 07/04/13 Susan Chow RN [address] [place] [address] Registered Nurse Internal Medicine 08/08/24 documented as of this encounter
== END 2024-11-12 16:37 | disposition home or self-care (01) ==
LOC: HO.HGI 15:58
PROVIDERS: PCP Internal Medicine; Visit Provider Nurse Practitioner
DX: R19.7 Diarrhea, unspecified (principal); Z53.20 Procedure and treatment not carried out because of patient's decision for unspecified reasons; R10.9 Unspecified abdominal pain; K58.0 Irritable bowel syndrome with diarrhea
CPT/HCPCS: 99213

== ENCOUNTER → 2024-11-12 15:58 | Outpatient (BNVA) | payer MEDICAID, SELFPAY | PROVIDERS: PCP Internal Medicine; Visit Provider Nurse Practitioner | DX: K21.9 Gastro-esophageal reflux disease without esophagitis (principal); K58.0 Irritable bowel syndrome with diarrhea; R10.9 Unspecified abdominal pain; Z53.20 Procedure and treatment not carried out because of patient's decision for unspecified reasons | CPT/HCPCS: 99212 ==

== ENCOUNTER 2025-05-13 14:16 | Outpatient (AMB) | payer MEDICAID, SELFPAY ==
--- NOTE | 2025-05-13 14:16 | A.OFFVIS_ITS ---
Vital Signs 05/13/25 14:17 Height 5 ft 3 in Weight 176 lb 5.917 oz BMI 31.2 BP 147/67 H Blood Pressure Location Lt brachial Position Sitting Pulse 59 Intake Visit Reasons: f/u ibs gerd Intake Note: Ree presents to in follow up of IBS and GERD. CC: Patient reports having a BM every 2-3 days and having to strain. She states that is better than having diarrhea all the time. Communications Department Head Required: No Accompanied by: Self / Same As Patient Allergies procaine (From NOVOCAIN) Allergy (Severe, Verified 05/13/25 14:31) ANGIOEDEMA latex (LATEX) Allergy (Intermediate, Verified 05/13/25 14:31) RASH nylon Allergy (Intermediate, Verified 05/13/25 14:31) Anaphylaxis penicillin V Allergy (Unknown, Verified 05/13/25 14:31) Abdominal Pain iodine Adverse Reaction (Severe, Verified 05/13/25 14:31) cramps dicyclomine Adverse Reaction (Intermediate, Verified 05/13/25 14:31) Dizziness HPI HPI f/u ibs gerd: Details: Assessment & Plan (1) Diarrhea: Code(s): R19.7 - Diarrhea, unspecified Category: Medical (2) Colonoscopy refused: Comment: r/t fear of her nylon allergy - waiting for Cologuard coverage Code(s): Z53.20 - Procedure and treatment not carried out because of patient's decision for unspecified reasons Category: Medical (3) Abdominal cramping: Code(s): R10.9 - Unspecified abdominal pain Category: Medical (4) Irritable bowel syndrome with diarrhea: Code(s): K58.0 - Irritable bowel syndrome with diarrhea Category: Medical Plan Her is on his second round of chemo for glioblastoma, They are trying to get him off of prednisone as he is developing some Aleksey-like sx. It appears the tumor is shrinking and there are no mets. With this she is eating on the run and her diarrhea is not good. I think it is time to move on and trial either Viberzi or Lotronex. Her PCP rx'ed COloguard, but she did not do it r/t diarrhea, maybe we can reconsider this when we get a good medication regimen. ROV 6 weeks. Medications: New L. acidophilus/Bifid. animalis 2.5 billion cell (Daily Probiotic) 1 cap PO DAILY 30 caps 12RF R19.7 - Diarrhea, unspecified eluxadoline (Viberzi) must administer with a meal/food 75 mg PO BID 60 tabs 5RF K58.0 - Irritable bowel syndrome with diarrhea On Hold atzzvw-hnearrgi-bulwdjd 36,000-114,000- 180,000 unit (Creon) Hold Comment: Doctor's Order 1 cap PO QID 100 caps 0RF R19.7 - Diarrhea, unspecified sucralfate Hold Comment: Doctor's Order 3 grams (3 x 1 gram) PO DAILY 270 tabs 0RF R19.7 - Diarrhea, unspecified TODAYS VISIT [facility] Surgical History H/O adenoidectomy H/O breast biopsy Family History Mother Colon cancer Social History Alcohol intake: former Patient Tobacco Use Status: Never used Tobacco Review of Systems Const Denies fatigue, Denies fever(s), Denies night sweats, Denies poor appetite and Denies weight loss Eyes Details: glasses Reports requires corrective lenses ENT Reports Normal hearing present, Denies dental pain, Denies dysphagia, Denies hearing loss, Denies mouth pain, Denies odynophagia, Denies throat swelling, Denies tongue swelling and Reports other (Dentition adequate) Card Reports no additional complaints Resp Reports no additional complaints GI Details: Denies abdominal pain, Denies melena, Denies bloating, Denies hematochezia, Reports constipation, Denies GI cramping, Denies dysphagia, Denies excessive flatus, Denies early satiety, Reports heartburn, Denies diarrhea, Reports loose stools, Denies nausea, Denies odynophagia, Denies vomiting and Denies hematemesis Skin/Breast Denies pruritus, Denies lesions, Denies rash and Denies jaundice Neuro Reports Normal hearing present and Denies Abnormal speech present Endo Denies fatigue Aller/Immun Denies throat swelling and Denies tongue swelling Physical Exam Vital Signs: Last Vital Signs Pulse 59 05/13/25 14:17 BP 147/67 H 05/13/25 14:17 BMI result Body Mass Index 31.2 Const General: cooperative, no acute distress, well developed and well groomed Nutritional Appearance: well nourished and obese Orientation/consciousness: oriented to person, oriented to place and oriented to time Limitations: No language barrier HEENT Head: Yes normocephalic and Yes atraumatic Eyes General: appearance normal, both eyes and all related structures Pupils: Equal, round and reactive pupils present Neck Neck: Yes normal visual inspection and Yes no lymphadenopathy Thyroid: Thyroid normal Resp Effort & Inspection: normal respiratory effort and able to speak in complete sentences Auscultation: clear to auscultation bilaterally Cardio Rate: regular rate Rhythm: regular rhythm Heart sounds: Normal, physiologic split S2 sound present Peripheral pulses: radial pulses present and posterior tibial pulses present GI Inspection: No distended, No Abdominal panniculus present and Yes obesity Palpation (GI): Soft to palpation, nontender, no guarding, not rigid and No hepatosplenomegaly present Percussion: Yes normal to percussion Auscultation: normal bowel sounds Rectal Exam - Female: deferred Skin General skin exam: no rashes or lesions noted, turgor normal, skin not dry, no jaundice, No spider nevi and no striae Rashes: no rashes Nails: normal Neuro General: oriented to person, oriented to place and oriented to time Cranial nerves: Yes Equal, round and reactive pupils present and Yes Normal hearing present Speech: No Abnormal speech present Extrem General: Yes normal to inspection, No clubbing, No cyanosis and No edema Psych Thought process: Normal thought process present and not confabulating Thought content: Normal thought content present Insight: Good insight present (Psych) Judgement: Good judgement present (Psych) Assessment & Plan Assessment & Plan (1) Irritable bowel syndrome with diarrhea: Code(s): K58.0 - Irritable bowel syndrome with diarrhea Category: Medical (2) Colonoscopy refused: Comment: r/t fear of her nylon allergy - waiting for Cologuard coverage Code(s): Z53.20 - Procedure and treatment not carried out because of patient's decision for unspecified reasons Category: Medical Plan Her GI regimen consists of Viberzi 75 mg twice a day and Creon. Subjective Patient presents with uncontrolled heartburn/acid reflux. Reports longstanding GERD previously controlled with pantoprazole that has progressively lost efficacy; currently taking pantoprazole twice daily without relief. Symptoms occur regardless of eating or fasting, with prominent nocturnal reflux despite head-of-bed elevation. Uses Tums frequently (4 at a time, including middle of t he night) with incomplete relief. Describes episodes of regurgitation with sour/acidic taste disrupting sleep and requiring prolonged rinsing/brushing. Notes weight fluctuation (previously down to approximately 130 lb at 5'5 with persistent heartburn; subsequently regained some weight and symptoms worsened). Also reports variable bowel habits?alternating days of constipation (hard to pass) with days of watery stools?attempting increased water intake and fruits/vegetables; has tried fiber supplements in the past. Did not start previously discussed Linzess due to cost concerns. Objective Assessment & Plan Gastroesophageal reflux disease (GERD), inadequate control on current PPI: Persistent and nocturnal reflux with regurgitation despite pantoprazole twice daily and lifestyle measures (head-of-bed elevation), consistent with PPI- refractory GERD. - Switch to lansoprazole; prescription sent to pharmacy. - Follow up in approximately 8 weeks (post-holidays) to assess response. - Reviewed that lansoprazole has different metabolism; if inadequate response, will proceed with trials of additional PPIs as needed. Insurance typically requires failure of multiple PPIs before approval of advanced/refractory therapies; will coordinate step therapy as indicated. Alternating bowel habits with constipation and intermittent loose stools: Patient reports variable stools despite hydration, produce intake, and prior fiber trials. No new alarming features discussed today. - Reinforced consideration of fiber supplementation as first-line for mixed bowel patterns if patient willing to retry. - No new prescription today; may revisit if symptoms persist or worsen. Tendonitis concern: Brought up briefly at end of visit. - Advised to address with primary care; can discuss at a future visit for general input as needed. Medications: Changed From unfost-jwydmokn-pbtrvxw (pork) 36,000-114,000- 180,000 unit (Creon) 1 cap PO QID 100 caps 1RF R19.7 - Diarrhea, unspecified To hpspdy-yjtvtkhd-imyctwe (pork) 36,000-114,000- 180,000 unit (Creon) 2 caps PO BID 100 caps 6RF R19.7 - Diarrhea, unspecified Refilled eluxadoline (Viberzi) must administer with a meal/food 75 mg PO BID 60 tabs 5RF K58.0 - Irritable bowel syndrome with diarrhea Discontinued sucralfate Discontinued Reason: Doctor's Order 3 grams (3 x 1 gram) PO DAILY 270 tabs 0RF R19.7 - Diarrhea, unspecified Coding Level of Care Code Est Pt Level 3 (77513) Diagnoses Irritable bowel syndrome with diarrhea K58.0 Colonoscopy refused Z53.20
[2025-05-13 14:17] VITALS: BP 147/67; PULSE 59; BMI 31.2
--- NOTE | 2025-05-13 15:52 | MHC.OFFVIS ---
Vital Signs 05/13/25 14:17 Height 5 ft 3 in Weight 176 lb 5.917 oz BMI 31.2 BP 147/67 H Blood Pressure Location Lt brachial Position Sitting Pulse 59 Intake Visit Reasons: f/u ibs gerd Allergies procaine (From NOVOCAIN) Allergy (Severe, Verified 05/13/25 14:31) ANGIOEDEMA latex (LATEX) Allergy (Intermediate, Verified 05/13/25 14:31) RASH nylon Allergy (Intermediate, Verified 05/13/25 14:31) Anaphylaxis penicillin V Allergy (Unknown, Verified 05/13/25 14:31) Abdominal Pain iodine Adverse Reaction (Severe, Verified 05/13/25 14:31) cramps dicyclomine Adverse Reaction (Intermediate, Verified 05/13/25 14:31) Dizziness HPI HPI f/u ibs gerd: Details: Assessment & Plan (1) Diarrhea: Code(s): R19.7 - Diarrhea, unspecified Category: Medical (2) Colonoscopy refused: Comment: r/t fear of her nylon allergy - waiting for Cologuard coverage Code(s): Z53.20 - Procedure and treatment not carried out because of patient's decision for unspecified reasons Category: Medical (3) Abdominal cramping: Code(s): R10.9 - Unspecified abdominal pain Category: Medical (4) Irritable bowel syndrome with diarrhea: Code(s): K58.0 - Irritable bowel syndrome with diarrhea Category: Medical Plan Her is on his second round of chemo for glioblastoma, They are trying to get him off of prednisone as he is developing some Aleksey-like sx. It appears the tumor is shrinking and there are no mets. With this she is eating on the run and her diarrhea is not good. I think it is time to move on and trial either Viberzi or Lotronex. Her PCP rx'ed COloguard, but she did not do it r/t diarrhea, maybe we can reconsider this when we get a good medication regimen. ROV 6 weeks. Medications: New L. acidophilus/Bifid. animalis 2.5 billion cell (Daily Probiotic) 1 cap PO DAILY 30 caps 12RF R19.7 - Diarrhea, unspecified eluxadoline (Viberzi) must administer with a meal/food 75 mg PO BID 60 tabs 5RF K58.0 - Irritable bowel syndrome with diarrhea On Hold wlruwf-jgpjvjfs-crzxubh 36,000-114,000- 180,000 unit (Creon) Hold Comment: Doctor's Order 1 cap PO QID 100 caps 0RF R19.7 - Diarrhea, unspecified sucralfate Hold Comment: Doctor's Order 3 grams (3 x 1 gram) PO DAILY 270 tabs 0RF R19.7 - Diarrhea, unspecified [facility] Surgical History H/O adenoidectomy H/O breast biopsy Family History Mother Colon cancer Social History Alcohol intake: former Patient Tobacco Use Status: Never used Tobacco Review of Systems Const Denies fatigue, Denies fever(s), Denies night sweats, Denies poor appetite and Denies weight loss ENT Reports Normal hearing present, Denies dental pain, Denies dysphagia, Denies hearing loss, Denies mouth pain, Denies odynophagia, Denies throat swelling, Denies tongue swelling and Reports other (Dentition adequate) Card Reports no additional complaints Resp Reports no additional complaints GI Details: Denies abdominal pain, Denies melena, Denies bloating, Denies hematochezia, Reports constipation, Denies GI cramping, Denies dysphagia, Denies excessive flatus, Denies early satiety, Denies heartburn, Reports diarrhea, Denies nausea, Denies odynophagia, Denies vomiting and Denies hematemesis Skin/Breast Denies pruritus, Denies lesions, Denies rash and Denies jaundice Neuro Reports Normal hearing present and Denies Abnormal speech present Psych Reports anxiety Endo Denies fatigue Aller/Immun Denies throat swelling and Denies tongue swelling Physical Exam Vital Signs: Last Vital Signs Pulse 59 05/13/25 14:17 BP 147/67 H 05/13/25 14:17 BMI result Body Mass Index 31.2 Const General: cooperative, no acute distress, well developed and well groomed Nutritional Appearance: well nourished and obese Orientation/consciousness: oriented to person, oriented to place and oriented to time Limitations: No language barrier HEENT Head: Yes normocephalic and Yes atraumatic Eyes General: appearance normal, both eyes and all related structures Pupils: Equal, round and reactive pupils present Neck Neck: Yes normal visual inspection and Yes no lymphadenopathy Thyroid: Thyroid normal Resp Effort & Inspection: normal respiratory effort and able to speak in complete sentences Auscultation: clear to auscultation bilaterally Cardio Rate: regular rate Rhythm: regular rhythm Heart sounds: Normal, physiologic split S2 sound present Peripheral pulses: radial pulses present and posterior tibial pulses present GI Inspection: No distended, No Abdominal panniculus present and Yes obesity Palpation (GI): Soft to palpation, nontender, no guarding, not rigid and No hepatosplenomegaly present Percussion: Yes normal to percussion Auscultation: normal bowel sounds Rectal Exam - Female: deferred Skin General skin exam: no rashes or lesions noted, turgor normal, skin not dry, no jaundice, No spider nevi and no striae Rashes: no rashes Nails: normal Neuro General: oriented to person, oriented to place and oriented to time Cranial nerves: Yes Equal, round and reactive pupils present and Yes Normal hearing present Speech: No Abnormal speech present Extrem General: Yes normal to inspection, No clubbing, No cyanosis and No edema Psych Appearance: grossly normal and well kempt Mental Status: mental status grossly normal Speech and movement: Normal speech and movement present Affect: normal affect Attitude: cooperative Thought process: Normal thought process present and not confabulating Thought content: Normal thought content present Insight: Good insight present (Psych) Judgement: Good judgement present (Psych) Assessment & Plan Assessment & Plan (1) Irritable bowel syndrome with diarrhea: Code(s): K58.0 - Irritable bowel syndrome with diarrhea Category: Medical (2) Colonoscopy refused: Comment: r/t fear of her nylon allergy - waiting for Cologuard coverage Code(s): Z53.20 - Procedure and treatment not carried out because of patient's decision for unspecified reasons Category: Medical Plan THIS IS THEY NOTE POST IT UNDER THE CORRECT PATIENT Her 's doing better with his chemotherapy for his glioblastoma. She continues on Viberzi 75 mg and Creon. Subjective Patient presents for follow-up of chronic GI symptoms on Viberzi. Reports significant improvement in prior diarrhea when taking Viberzi consistently but now experiencing constipation with bowel movements every 2?3 days, hard stools, and straining with painful defecation. Notes intermittent left lower abdominal pain that improved after a bowel movement this morning. She finds twice-daily dosing challenging due to difficulty remembering morning pills. Previously had diarrhea when taking once daily. She no longer uses sucralfate. Continues Creon. Discussed that stress worsens GI symptoms; she is under considerable stress related to her 's ongoing chemotherapy and care coordination. Relevant Past Medical, Social, and Family History - On Creon for pancreatic enzyme supplementation. Previously on sucralfate, now discontinued. Financial stressors and benefits issues; caregiver stress due to spouse?s cancer treatment. Objective Assessment & Plan GI symptoms (diarrhea improved on Viberzi with resultant constipation): Symptoms improved from baseline diarrhea with Viberzi but current regimen contributing to constipation and hard stools with intermittent left lower abdominal discomfort that improves post?bowel movement. Patient has difficulty adhering to strict BID dosing schedule. - Adjust Viberzi dosing to balance efficacy and side effects: patient may alternate dosing (twice daily one day, once daily the next) to target regular, comfortable stools. - Tablet splitting is acceptable for Viberzi (not time-release): patient may trial 1.5 tablets per day (e.g., half-tablet plus whole tablet) and adjust timing (day vs. bedtime) to optimize tolerance and adherence. - Continue Creon as currently taking. - Sucralfate remains discontinued. - Prescription for Viberzi renewed today. - Patient to self-titrate within these parameters to achieve softer, regular bowel movements and reduce straining; will monitor abdominal symptoms and adjust as needed. Medications: Changed From xabedn-tfboqvnr-ibsikom (pork) 36,000-114,000- 180,000 unit (Creon) 1 cap PO QID 100 caps 1RF R19.7 - Diarrhea, unspecified To vymhfu-mqssmcxy-pkrlsul (pork) 36,000-114,000- 180,000 unit (Creon) 2 caps PO BID 100 caps 6RF R19.7 - Diarrhea, unspecified Refilled eluxadoline (Viberzi) must administer with a meal/food 75 mg PO BID 60 tabs 5RF K58.0 - Irritable bowel syndrome with diarrhea Discontinued sucralfate Discontinued Reason: Doctor's Order 3 grams (3 x 1 gram) PO DAILY 270 tabs 0RF R19.7 - Diarrhea, unspecified Coding Level of Care Code Est Pt Level 3 (03483) Diagnoses Irritable bowel syndrome with diarrhea K58.0 Colonoscopy refused Z53.20
--- OUTSIDE RECORDS SUMMARY | 2025-05-13 20:17 | XMS_ITS | Encounter Summary ---
Author Organization [employer] Address [address] [place] [address] Care Team Providers Care Yeast Tender Name Role Phone Emily Stern MD Primary Care Provider [phone] Susan Chow RN Unavailable [phone] Reason for Visit * Reason Comments Med Refill Encounter Details Date Type Department Care Team (Late Contact Info) Description 11/08/2022 Refill [facility] MEDICINE [address] [place] [address] Emily Stern MD [address] [place], [place] [phone] Generalized anxiety disorder Social History Tobacco Use Types Packs/Day Years Used Date Smoking Tobacco: Never Smokeless Tobacco: Never Comments Unknown Sex and Gender Information Value Date Recorded Sex Assigned at Female 04/04/2022 10:20 AM EDT Legal Sex Female 10:20 AM EDT Gender Identity Female 04/04/2022 10:20 AM EDT Sexual Orientation Straight 04/04/2022 10 :20 AM EDT documented as of this encounter Plan of Treatment Upcoming Encounters Date Type Department Care Team (Late Contact Info) Description 06/02/2025 3:00 PM EST Telemedicine [facility] MED & PEDS [address] [place], [place] [phone] Susan Chow, SEDA [address] [place], [place] [phone] documented as of this encounter Visit Diagnoses Diagnosis Generalized anxiety disorder documented in this encounter Care Teams Yeast Tender Relationship Specialty Start Date End Date Emily Stern MD [address] [place] [address] PCP - General Internal Medicine 07/04/13 Susan Chow RN [address] [place] [address] Registered Nurse Internal Medicine 08/08/24 documented as of this encounter
--- OUTSIDE RECORDS SUMMARY | 2025-05-13 20:17 | XMS_ITS | Encounter Summary ---
Author Organization [employer] Address [address] [place] [address] Care Team Providers Care Industrial Maintenance Tech Name Role Phone Emily Stern MD Primary Care Provider Susan Chow RN Unavailable [phone] Encounter Details Date Type Department Care Team (Late Contact Info) Description 05/19/2023 Orders Only [facility] MED & PEDS [address] [place] [address] Emily Stern MD [address] [place], [place] [phone] Acquired hypothyroidism (Primary Dx) Social History Tobacco Use Types Packs/Day Years [...] Encounters Date Type Department Care Team (Late st Contact Info) Description 06/02/2025 3:00 PM EST Telemedicine [facility] MED & PEDS [address] [place], [place] [phone] Susan Chow, RN [address] [place], [place] [phone] Scheduled Orders Name Type Priority Associated Diagnoses Orde r Schedule TSH W/Reflex to FT4 Lab Routine Acquired hypothyroidism Expected: 05/19/2023 (Approximate), Expires: 05/19/2024 documented as of this encounter Visit Diagnoses Diagnosis Acquired hypothyroidism- Primary Unspecified hypothyroidism documented in this encounter Care Teams Industrial Maintenance Tech Relationship Specialty Start Date End Date Emily Stern MD [address] [place] [address] PCP - General Internal Medicine 07/04/13 Susan Chow RN [address] [place] [address] Registered Nurse Internal Medicine 08/08/24 documented as of this encounter
--- OUTSIDE RECORDS SUMMARY | 2025-05-13 20:17 | XMS_ITS | Encounter Summary ---
Author Organization [employer] Address [address] [facility] [address] [place] [address] Care Team Providers Care Supervisor Hydrochloric Area Name Role Phone Emily Stern MD Primary Care Provider [phone] Susan Chow RN Unavailable [phone] Reason for Visit * Reason Onset Date Comments Nurse Triage 06/11/2024 Encounter Details Date Type Department Care Team (Late st Contact Info) Description 06/11/2024 Telephone [facility] MEDICINE [address] [place] [address] Emily Stern MD [address] [place], [place] [phone] Nurse Triage Social History Tobacco Use Types [...] from ear. Offered pt. An appt. In [facility] for tomorrow and Pt. States she [...] under her allergies. * Telephone Encounter - Arcenio Cadet - 06/11/2024 3:02 PM EST Symptom: Sinus Symptoms Outcome: Schedule an appointment to be seen within 24 hours Reason: Caller denied all higher acuity questions The caller accepted this outcome. documented in this encounter Plan of Treatment Upcoming Encounters Date Type Department Care Team ([facility] st Contact Info) Description 06/02/2025 3:00 PM EST Telemedicine [facility] MED & PEDS [address] [place] [address] Susan Chow, SEDA [address] [place] [address] documented as of this encounter Visit Diagnoses Not on filedocumented in this encounter Additional Health Concerns Assessment Noted Time PHQ-9 Depression Total Score: 2 12/11/19 24 3:57 PM EDT documented as of this encounter Care Teams Supervisor Hydrochloric Area Relationship Specialty Start Date End Date Emily Stern MD [address] [place] [address] PCP - General Internal Medicine 07/04/13 Susan Chow RN [address] [place] [address] Registered Nurse Internal Medicine 08/08/24 documented as of this encounter
--- OUTSIDE RECORDS SUMMARY | 2025-05-13 20:17 | XMS_ITS | Encounter Summary ---
Author Organization [employer] Address [address] [facility] [address], [place] [address] Care Team Providers Care Patient Service Associate Name Role Phone Emily Stern MD Primary Care Provider [phone] Susan Chow RN Unavailable [phone] Reason for Visit * Reason Onset Date Comments Appointment Request 06/07/2024 Encounter Details Date Type Department Care Team (Late st Contact Info) Description 06/07/2024 Telephone [facility] MEDICINE [address] [place] [address] Emily Stern MD [address] [place], [place] [phone] Appointment Request Social History Tobacco Use Types Packs/Day Years [...] encounter Miscellaneous Notes * Telephone Encounter - Arcenio Helio - 06/07/2024 2:56 PM EST Tc from pt stating they would like to reschedule appt on June 13 at 2:30pm. Contact pt : [phone] documented in this encounter Plan of Treatment Upcoming Encounters Date Type Department Care Team (Late st Contact Info) Description 06/02/2025 3:00 PM EST Telemedicine [facility] MED & PEDS [address] [place] [address] Susan Chow RN [address] [place] [address] documented as of this encounter Visit Diagnoses Not on filedocumented in this encounter Additional Health Concerns Assessment Noted Time PHQ-9 Depression Total Score: 2 12/11/19 24 3:57 PM EDT documented as of this encounter Care Teams Patient Service Associate Relationship Specialty Start Date End Date Emily Stern MD [address] [place] [address] PCP - General Internal Medicine 07/04/13 Susan Chow RN [address] [place] [address] Registered Nurse Internal Medicine 08/08/24 documented as of this encounter
--- OUTSIDE RECORDS SUMMARY | 2025-05-13 20:17 | XMS_ITS | Encounter Summary ---
Author Organization [employer] Address [address] [place] [address] Care Team Providers Care Delinquent Tax Collector Name Role Phone Emily Stern MD Primary Care Provider [phone] Susan Chow RN Unavailable [phone] Reason for Visit * Reason Onset Date Comments Med Refill 03/20/2023 Encounter Details Date Type Department Care Team (Late Contact Info) Description 03/20/2023 Telephone [facility] MED & PEDS [address] [place] [address] Emily Stern MD [address] [place] [address] Med Refill Social History Tobacco Use Types Packs/Day Years [...] encounter Miscellaneous Notes * Telephone Encounter - Kitty Knutson - 03/20/2023 3:55 PM EDT Tc from pt requesting med refill on amitriptyline (Elavil) 25 MG tablet documented in this encounter Plan of Treatment Upcoming Encounters Date Type Department Care Team (Late st Contact Info) Description 06/02/2025 3:00 PM EST Telemedicine [facility] MED & PEDS [address] [place] [address] Susan Chow RN [address] [place] [address] documented as of this encounter Visit Diagnoses Not on filedocumented in this encounter Care Teams Delinquent Tax Collector Relationship Specialty Start Date End Date Emily Stern MD [address] [place] [address] PCP - General Internal Medicine 07/04/13 Susan Chow RN [address] [place] [address] Registered Nurse Internal Medicine 08/08/24 documented as of this encounter
--- OUTSIDE RECORDS SUMMARY | 2025-05-13 20:17 | XMS_ITS | Clinical Summary ---
Author Organization [employer] Address [address] [place] [address] 7 [place] [address] Care Team Providers Care Junior Account Executive Name Role Phone Emily Stern MD Primary Care Provider [phone] Susan Chow RN Unavailable [phone] Allergies Active Allergy Reactions Criticality Noted Date Comments Penicillin V 05/24/2010 Other reaction(s): unspecified Procaine 04/19/2013 Other reaction(s): swelling Medications betamethasone valerate (Valisone) 0.1 % ointment APPLY THIN LAYER TOPICALLY TO THE AFFECTED AREA TWICE DAILY 03/28/20 22 Active dicyclomine (Bentyl) 10 MG capsule TAKE 1 CAPSULE BY MOUTH FOUR TIMES DAILY BEFORE MEALS AND AT BEDTIME 09/08/19 22 Active fluticasone (Flonase) 50 MCG/ACT nasal spray SHAKE LIQUID AND USE 1 TO 2 SPRAYS IN EACH NOSTRIL EVERY DAY NEEDED 16 g 11 09/02/19 23 Active amitriptyline (Elavil) 10 MG tablet TAKE 1 TO 2 TABLETS BY MOUTH EVERY NIGHT AT BEDTIME 60 tablet 11 09/28/19 23 Active buPROPion SR (Wellbutrin SR) 150 MG 12 hr tabletIndications :Depressive disorder Take 1 tablet (150 mg) by mouth 2 times daily. Do not crush, chew, or split. 60 tablet 11 11/25/19 23 Active buPROPion (Wellbutrin) 100 MG tabletIndications :Depressive disorder TAKE 1 TABLET(100 MG) BY MOUTH IN THE MORNING FOR 15 DAYS 15 tablet 07/31/19 24 Active SUMAtriptan (Imitrex) 50 MG tablet Take 1 tablet (50 mg) by mouth 1 (one) time if needed for migraine for up to 32 doses. May repeat dose once in 2 hours if no relief. Do not exceed 2 doses in 24 hours. 8 tablet 3 10/02/19 25 Active propranolol LA (Inderal LA) 60 MG 24 hr capsuleIndication s:Primary hypertension TAKE 1 CAPSULE(60 MG) BY MOUTH IN THE MORNING. DO NOT CRUSH, CHEW, OR SPLIT 90 capsule 3 10/22/19 25 Active rosuvastatin (Crestor) 40 MG tabletIndications :Hypercholesterol emia TAKE 1 TABLET(40 MG) BY MOUTH IN THE MORNING 90 tablet 3 10/22/19 25 Active thyroid (Beach Thyroid) 60 MG tabletIndications :Acquired hypothyroidism Take 1 tablet (60 mg) by mouth Once per day. TAKE 1 TABLET(60 MG) BY MOUTH IN THE MORNING 90 tablet 3 03/05/20 25 Active ketoconazole (NIZOral) 2 % shampooIndication s:Psoriasis Apply topically 2 (two) times a week. 120 mL 3 03/10/20 25 Active lisinopril 5 MG tabletIndications :Primary hypertension Take 1 tablet (5 mg) by mouth Once per day. 30 tablet 11 03/07/20 25 026 Active econazole nitrate 1 % creamIndications: Tinea pedis of both feet Apply topically Once per day. To apply to the affected area 2 times a day 85 g 03/07/20 25 026 Active tiZANidine (Zanaflex) 4 MG tabletIndications :Neck pain 1 tablet at bedtime as needed 30 tablet 2 03/07/20 25 Active diclofenac sodium 3 % gelIndications:Ne ck pain Apply topically 2 times daily. 100 g 1 03/07/20 25 Active LORazepam (Ativan) 0.5 MG tabletIndications :Generalized anxiety disorder TAKE 1 TABLET(0.5 MG) BY MOUTH EACH DAY NEEDED FOR ANXIETY 28 tablet 04/22/20 25 Active amitriptyline (Elavil) 25 MG tablet TAKE 1 TABLET(25 MG) BY MOUTH AT BEDTIME 30 tablet 05/05/20 25 Active Banophen 25 MG tabletIndications :Hypercholesterol emia TAKE 1 TABLET(25 MG) BY MOUTH AT BEDTIME NEEDED FOR ITCHING 30 tablet 05/06/20 25 Active LORazepam (Ativan) 0.5 MG tabletIndications :Generalized anxiety disorder Take 1 tablet (0.5 mg) by mouth if needed each day for anxiety. 28 tablet 03/05/20 25 025 Discontinued Banophen 25 MG tabletIndications :Hypercholesterol emia TAKE 1 TABLET(25 MG) BY MOUTH AT BEDTIME NEEDED FOR ITCHING 30 tablet 04/07/20 25 025 Discontinued amitriptyline (Elavil) 25 MG tablet TAKE 1 TABLET(25 MG) BY MOUTH AT BEDTIME 30 tablet 04/07/20 25 025 Discontinued Active Problems Problem Noted Date Diagnosed Date Long-term current use of benzodiazepine 08/09/19 Acquired hypothyroidism 09/01/2022 Psoriasis 09/01/2022 Chronic low back pain 05/09/2016 Left lower quadrant pain 05/09/2016 Depressive disorder 04/19/2013 Hypertension 04/19/2013 Migraine 04/19/2013 Chronic pain syndrome 10/05/2011 Insomnia 10/05/2011 Encounters Date Type Department Care Team Description 05/05/[address] [facility] [address] [place] [address] Emily Stern MD Hypercholesterolemia 05/04/2025 Refill [facility] [address] [place] [address] Emily Stern MD 04/22/2025 Refill [facility] [address] [place] [address] Emily Stern MD Generalized anxiety disorder 04/06/2025 Refill [facility] [address] [place] [address] Emily Stern MD Hypercholesterolemia 03/12/2025 Orders Only [facility] [address] [place] [address] Emily Stern MD Screening for colon cancer (Primary Dx) 03/11/2025 Refill [facility] [address] [place] [address] Emily Stern MD 03/07/2025 4:00 PM EDT Office Visit [facility] [address] [place] [address] Emily Stern MD Acquired hypothyroidism (Primary Dx); Primary hypertension; Long-term current use of benzodiazepine; Hypercholesterolemia; Primary insomnia; Psoriasis; Dietary counseling; Exercise counseling; Class 1 obesity due to excess calories with serious comorbidity and body mass index (BMI) of 30.0 to 30.9 in adult; Neck pain; Tinea pedis of both feet; Screening for colon cancer 03/07/2025 Travel 03/06/2025 Travel 03/06/2025 Telephone [facility] [address] [place] [address] Emily Stern MD Chart Prep 03/05/2025 2:45 PM EDT Clinical Support [facility] [address] [place] [address] Susan Chow RN Anxiety (Primary Dx) 03/05/2025 Refill [facility] [address] [place] [address] Emily Stern MD Acquired hypothyroidism 03/05/2025 Refill [facility] [address] [place] [address] Emily Stern MD Acquired hypothyroidism 03/05/2025 Refill [facility] [address] [place] [address] Susan Chow RN Generalized anxiety disorder; Acquired hypothyroidism 03/05/2025 Travel 03/04/2025 Travel from Last 3 Months Immunizations Immunization Administration Dates Next Due Hep B, adult 05/14/2019,02/11/2019,01/08/2019 Influenza injectable quadriv alent IIV4 with preservative 04/10/2017,05/09/2016 Influenza injectable quadriv alent preservative free 04/01/2021,02/11/2019 MMR 02/11/2019 Tdap 05/14/2019 Zoster, Recombinant 05/08/2019,02/11/2019 Social History Tobacco Use Types Packs/Day Years Used Date Smoking Tobacco: Never Smokeless Tobacco: Never Tobacco Cessation:Counseling Given: No Depression Answer Date Recorded Patient Health Questionnaire-9 [...] Orientation Straight 04/04/2022 10 :20 AM EDT Last Filed Vital Signs Vital Sign Reading Time Taken Comments Blood Pressure 160/87 03/07/2025 3:54 PM EDT Pulse 83 03/07/2025 3:54 PM EDT Temperature 36.1 C (96.9 F) 05/22/2023 3:17 PM EST Respiratory Rate 19 03/07/2025 3:54 PM EDT Oxygen Saturation 94% 03/07/2025 3:54 PM EDT Inhaled Oxygen Concentration - - Weight 79.8 kg (176 lb) 03/07/2025 3:54 PM EDT Height 160.7 cm (5' 3.25 ) 03/07/2025 3:54 PM ED T Body Mass Index 30.93 03/07/2025 3:54 PM EDT Plan of Treatment Upcoming Encounters Date Type Department Care Team ([facility] st Contact Info) Description 06/02/2025 3:[address] [facility] [address] [facility] [place] [address] Susan Chow, RN [address] [place] [address] Health Maintenance Due Date Last Done Comments CT Colonography 1960 Colonoscopy 1962 Colorectal Cancer Screening 1960 FIT DNA/Cologuard 1962 FIT 1960 FOBT 1960 HIV Screening 1960 Sigmoidoscopy 1962 Alcohol/Substance Use Screening 1974 Hepatitis C Screening 1980 Pap Smear 1983 Pneumococcal Vaccine: 50+ Years (1 of 1 - PCV) 2012 Cervical Cancer Screening 07/18/2022 HPV/Cotest 07/18/2022 07/18/2017 Depression Screening 12/10/2024 12/11/2023, 12/11/19 24 SDOH Screening 12/10/2024 12/11/2023 COVID-19 Vaccine ( season) 2025 10/02/2023, 04/01/2021, 09/11/2020 Influenza Vaccine (#1) 2025 , 02/11/2019, 04/10/2017, Additional history exists Disability Screening 08/07/2025 08/07/2024 Mammogram 01/23/2026 01/24/2024, 2 07/2020, 02/27/2019 Tobacco Screening 03/07/2026 03/07/2025 Lipid Panel 05/17/2028 05/17/2023, 06/0 07/2022, 06/29/2021, Additional history exists DTaP/Tdap/Td Vaccines (2 - Td or Tdap) 05/14/2029 05/14/2019 RSV Patients and Patients Aged 60 years or older (1 - 1-dose 75+ series) 2037 Zoster Vaccines Completed 05/08/2019, 02/11/2019 Hepatitis B Vaccines Completed 05/14/2019, 02/11/2019, 01/08/2019 HIB Vaccines Aged Out No longer eligi ble based on patient's age to complete this topic HPV Vaccines Aged Out No longer eligi ble based on patient's age to complete this topic Hepatitis A Vaccines Aged Out No long er eligible based on patient's age to complete this topic IPV Vaccines Aged Out No longer eligi ble based on patient's age to complete this topic Meningococcal B Vaccine Aged Out No l onger eligible based on patient's age to complete this topic Meningococcal Vaccine Aged Out No luis felipe елена eligible based on patient's age to complete this topic RSV under 20 months Aged Out No longe r eligible based on patient's age to complete this topic Rotavirus Vaccines Aged Out No longer eligible based on patient's age to complete this topic Procedures Procedure Name Priority Date/Time Associated Diagnosis Comments POCT CELSO-14 URINE DRUG SCREEN Routine 03/05/2025 3:04 PM EDT Anxiety BI MAMMOGRAM SCREENING TOMOSYNTHESIS BILATERAL Routine 01/24/2024 3:15 PM EDT Screening mammogram for breast cancer LIPID PANEL, STANDARD Routine 05/17/2023 12:45 PM EST Hypercholesterolem ia ZZZ HISTORICAL HPV MRNA E6/E7 Routine 07/18/2017 3:59 PM EST from Last 3 Months or Most Recently Relevant to Health Maintenance Results * (ABNORMAL) POCT CELSO-14 Urine Drug Screen (03/05/2025 3:04 PM EDT) THC Positive(A) Negative Cocaine Screen, Urine Negative Negative Opiate Screen, Urine Negative Negative Methamphetamine Screen Urine Negative Negative Amphetamine Screen, Urine Negative Negative Benzodiazepines Screen, Urine Negative Negative Barbiturate Screen, Urine Negative Negative Methadone Screen, Urine Negative Negative Buprenophine Screen, Urine Negative Negative TCA, Urine Positive(A) Negative MDMA Urine Negative Negative ng/mL Oxycodone Screen, Urine Negative Negative Phencyclidine (PCP), Urine Negative Negative Propoxyphene, Urine Negative Negative Fentanyl, Urine Negative Negative Urine Urine specimen obtained by clean catch procedure / Unknown 03/05/2025 3:04 PM EDT Narrative Susan Chow, RN - 03/05/2025 3:04 PM EDT . Internal Pass Control Lot# [id number] Exp: 04-04-26 Emily Stern MD POINT OF CARE TEST ENTER/ED IT ORDERABLES Final Result * BI Mammogram Screening Tomosynthesis Bilateral (01/24/2024 3:15 PM EDT) Anatomical Region Laterality Modality Breast Bilateral Mammography 01/24/2024 3:15 PM EDT Narrative 02/21/2024 9:41 PM EDT [address] [place], [place] [address] Mammography Report Signed Patient: Ree Greer MR#: [id number] : 1960 Acct:[id number] Age/Sex: 63 / F ADM Date: 01/24/24 Loc: HO.MAMMO Attending Dr: Emily Stern MD Ordering Physician: Emily Stern MD Results: 2 Benign Findings Date of Service: 01/24/24 Follow Up: 1 Year From [facility] Mammogram Procedure(s): MM tomosynthesis screening BI Accession Number(s): [id number] cc: Emily Stern MD EXAMINATION: MM SCREENING DIGITAL BREAST TOMOSYNTHESIS, BILATERAL CLINICAL INFORMATION: Screening. Asymptomatic. COMPARISON: Mammography: Comparison with available prior's. TECHNIQUE: Digital breast tomosynthesis is performed in both the craniocaudal and mediolateral oblique views along with computer-aided detection (CAD). Synthesized 2D images are generated from the tomosynthesis. FINDINGS: The breasts are heterogeneously dense, which may obscure small masses (ACR BI-RADS breast composition Category c). Marker clip in the upper outer left breast. There are no significant masses, abnormal calcifications, or other abnormalities. MM/MM tomosynthesis screening BI IMPRESSION: No mammographic evidence of malignancy. ASSESSMENT: BI-RADS BI-RADS 2 - Benign Findings RECOMMENDATION: Routine annual mammography screening. 1 year F/U This examination should not preclude the clinical evaluation of a suspicious palpable abnormality. This patient's information was entered into a reminder system with a target due date for their next mammogram. Electronically signed by: Elizabeth Roberts DO 02/21/2024 09:38 PM EDT Dictated By: Elizabeth Roberts DO Signed By: <Electronically signed by Elizabeth Roberts DO in OV> 02/21/248 DD/ 1515 TD/TT: 01/24/24 1530 Biofuels Processing Technician: Procedure Note Donotuseinterpreter, Image - 02/21/2024 [facility] [address] [place] [address] Mammography Report Signed Patient: Mary Greer#: [id number] : 1960Acct:[id number] Age/Sex: 63 / FADM Date: 01/24/24 Loc: HO.MAMMO Attending Dr: Emily Stern MD Ordering Physician: Emily Stern MDResults: 2 Benign Findings Date of Service: 01/24/24Follow Up: 1 Year From [facility] Mammogram Procedure(s): MM tomosynthesis screening BI Accession Number(s): [id number] cc: Emily Stern MD EXAMINATION: MM SCREENING DIGITAL BREAST TOMOSYNTHESIS, BILATERAL CLINICAL INFORMATION: Screening. Asymptomatic. COMPARISON: Mammography: Comparison with available prior's. TECHNIQUE: Digital breast tomosynthesis is performed in both the craniocaudal and mediolateral oblique views along with computer-aided detection (CAD). Synthesized 2D images are generated from the tomosynthesis. FINDINGS: The breasts are heterogeneously dense, which may obscure small masses (ACR BI-RADS breast composition Category c). Marker clip in the upper outer left breast. There are no significant masses, abnormal calcifications, or other abnormalities. MM/MM tomosynthesis screening BI IMPRESSION: No mammographic evidence of malignancy. ASSESSMENT: BI-RADS BI-RADS 2 - Benign Findings RECOMMENDATION: Routine annual mammography screening. 1 year F/U This examination should not preclude the clinical evaluation of a suspicious palpable abnormality. This patient's information was entered into a reminder system with a target due date for their next mammogram. Electronically signed by: Elizabeth Roberts DO 02/21/2024 09:38 PM EDT Dictated By: Elizabeth Roberts DO Signed By: <Electronically signed by Elizabeth Roberts DO in OV> 02/21/248 DD/ 1515 TD/TT: 01/24/24 1530 Biofuels Processing Technician: us Emily Stern MD IMG BI PROCEDURES Final Res ult * Lipid Panel, Standard (05/17/2023 12:45 PM EST) Cholesterol, Total 137 <200 mg/dL [employer] HDL Cholesterol 54 > OR = 50 mg/dL [employer] Triglycerides 138 <150 mg/dL [employer] [place] [facility] LDL Cholesterol 61 mg/dL [facility] [employer] Comment: Reference range: <100 Desirable range <100 mg/dL for primary prevention; <70 mg/dL for patients with CHD or diabetic patients with > or = 2 CHD risk factors. LDL-C is now calculated using the Aman-Benavides calculation, which is a validated novel method providing better accuracy than the Friedewald equation in the estimation of LDL-C. Aman SS et al. NGA. 2013;310(19): 3406-6050 (http://education.[employer]/faq/OCU241) Chol/HDLC Ratio 2.5 <5.0 (calc) [employer] [place] Non-HDL Cholesterol 83 <130 mg/dL [employer] Comment: For patients with diabetes plus 1 major ASCVD risk factor, treating to a non-HDL-C goal of <100 mg/dL (LDL-C of <70 mg/dL) is considered a therapeutic option. Blood Venous blood specimen / Unknown 05/17/2023 12:45 PM EST 05/17/2023 12:47 PM EST Narrative [facility] - 05/18/2023 1:32 AM EST FASTING:YES FASTING: YES us Emily Stern MD LAB BLOOD ORDERABLES Final Result [facility] [address] [facility], [facility], [place] [address] [facility] [place] [facility] [address] [place] [address] * HPV mRNA E6/E7 (07/18/2017 3:59 PM EST) HPV mRNA E6/E7 Not Detected NOT DETECTED [facility] Comment: This test was performed using the APTIMA(R) HPV Assay ([employer] This assay detects E6/E7 viral messenger RNA (mRNA) from 14 high-risk HPV types (16,18,31,33,35,39,45,51, 52,56,58,59,66,68). For additional information please refer to: http://education.[employer]/faq/IWP212i2 (This link is being provided for informational/ educational purposes only.) Test Performed by Adelaide Snell, [employer] [facility], [address] [place] [id number] Tito Schmidt M.D., Ph.D., Director of Laboratories , [facility] [id number] Please note: Effective 02/15/2016, HPV testing will be performed using [employer]'s APTIMA test which targets mRNA. Detecting mRNA instead of DNA, as in older methods, offers significant improvements in specificity. 07/18/2017 3:59 PM EST us Maria M Braga CNM HISTORICAL/NON ORDERABLE LABS Final Result [facility] [address] from Last 3 Months or Most Recently Relevant to Health Maintenance Insurance [facility] C3 Care Teams Junior Account Executive Relationship Specialty Start Date End Date Emily Stern MD [address] [place] [address] PCP - General Internal Medicine 07/04/13 Susan Chow RN [address] [place] [address] Registered Nurse Internal Medicine 08/08/24
--- OUTSIDE RECORDS SUMMARY | 2025-05-13 20:17 | XMS_ITS | Encounter Summary ---
Author Organization [employer] Address [address] [facility] 7 [place] [address] Care Team Providers Care Lubrication Technician Name Role Phone Emily Stern MD Primary Care Provider [phone] Susan Chow RN Unavailable [phone] Reason for Visit * Reason Onset Date Comments Call Back Request 11/06/2024 Encounter Details Date Type Department Care Team (Late st Contact Info) Description 11/06/[address] [facility] MED[facility] [address] [place] [address] Emily Stern MD [address] [place], [place] [id number] Call Back Request Social History Tobacco Use Types Packs/Day [...] encounter Miscellaneous Notes * Telephone Encounter - Skip Haque - 11/06/2024 3:24 PM EDT Tc from pt calling in regards to recent MANAGER FOOD SAFETY visit stating on of the prescriptions for LORazepam found in her bag is her partners and not hers. Pt is hoping to correct this error and would like a callback to further confirm. Please contact pt at [phone]. documented in this encounter Plan of Treatment Upcoming Encounters Date Type Department Care Team ([facility] st Contact Info) Description 06/02/2025 3:00 PM EST Telemedicine [facility] [address] [place] [address] Susan Chow RN [address] [place] [address] documented as of this encounter Visit Diagnoses Not on filedocumented in this encounter Additional Health Concerns Assessment Noted Time PHQ-9 Depression Total Score: 2 12/11/19 24 3:57 PM EDT documented as of this encounter Care Teams Lubrication Technician Relationship Specialty Start Date End Date Emily Stern MD [address] [place] [address] PCP - General Internal Medicine 07/04/13 Susan Chow RN [address] [place] [address] Registered Nurse Internal Medicine 08/08/24 documented as of this encounter
--- OUTSIDE RECORDS SUMMARY | 2025-05-13 20:17 | XMS_ITS | Encounter Summary ---
Author Organization [employer] Address [address] [facility] 7 [place] [address] Care Team Providers Care Arboriculturist Name Role Phone Emily Stern MD Primary Care Provider [phone] Susan Chow RN Unavailable [phone] Encounter Details Date Type Department Care Team ([facility] st Contact Info) Description 06/12/2024 Orders Only [facility] [address] [place] [address] Emily Stern MD [address] [place] [address] Social History Tobacco Use Types Packs/Day Years [...] Upcoming Encounters Date Type Department Care Team ([facility] st Contact Info) Description 06/02/2025 3:00 PM EST Telemedicine [facility] [address] [place] [address] Susan Chow RN [address] [place] [address] documented as of this encounter Visit Diagnoses Not on filedocumented in this encounter Additional Health Concerns Assessment Noted Time PHQ-9 Depression Total Score: 2 12/11/19 24 3:57 PM EDT documented as of this encounter Care Teams Arboriculturist Relationship Specialty Start Date End Date Emily Stern MD [address] [place] [address] PCP - General Internal Medicine 07/04/13 Susan Chow, SEDA [address] [place] [address] Registered Nurse Internal Medicine 08/08/24 documented as of this encounter
--- OUTSIDE RECORDS SUMMARY | 2025-05-13 20:17 | XMS_ITS | Encounter Summary ---
Author Organization [employer] Address [address] [facility] 7 [place] [address] Care Team Providers Care Germination Testing Manager Name Role Phone Emily Stern MD Primary Care Provider [phone] Susan Chow RN Unavailable [phone] Encounter Details Date Type Department Care Team ([facility] Contact Info) Description 03/12/2025 Orders Only [facility] [address] [place], [place] [phone] Emily Stern MD [address] [place] [address] Screening for colon cancer (Primary Dx) Social History Tobacco Use Types [...] Info) Description 06/02/2025 3:00 PM EST Telemedicine [facility] [address] [place] [address] Susan Chow RN [address] [place] [address] Scheduled Orders Name Type Priority Associated Diagnoses Orde r Schedule Cologuard colon cancer screening Lab Routine Screening for colon cancer Expected: 03/12/2025 (Approximate), Expires: 03/12/2026 documented as of this encounter Visit Diagnoses Diagnosis Screening for colon cancer- Primary Special screening for malignant neoplasms, colon documented in this encounter Additional Health Concerns Assessment Noted Time PHQ-9 Depression Total Score: 2 12/11/19 24 3:57 PM EDT documented as of this encounter Care Teams Germination Testing Manager Relationship Specialty Start Date End Date Emily Stern MD [address] [place] [address] PCP - General Internal Medicine 07/04/13 Susan Chow RN [address] [place] [address] Registered Nurse Internal Medicine 08/08/24 documented as of this encounter
--- OUTSIDE RECORDS SUMMARY | 2025-05-13 20:17 | XMS_ITS | Encounter Summary ---
Author Organization [employer] Address [address] [place] [address] Care Team Providers Care Manager Distribution Name Role Phone Emily Stern MD Primary Care Provider Susan Chow RN Unavailable [phone] Encounter Details Date Type Department Care Team (Late st Contact Info) Description 06/12/2023 Orders Only [facility] [address] [place] [address] Emily Stern MD [address] [place] [address] Depressive disorder (Primary Dx) Social History Tobacco Use Types [...] Info) Description 06/02/2025 3:00 PM EST Telemedicine [facility] [address] [place] [address] Susan Chow, RN [address] [place], [place] [phone] documented as of this encounter Visit Diagnoses Diagnosis Depressive disorder- Primary Depressive disorder, not elsewhere classified documented in this encounter Care Teams Manager Distribution Relationship Specialty Start Date End Date Emily Stern MD [address] [place] [address] PCP - General Internal Medicine 07/04/13 Susan Chow RN [address] [place] [address] Registered Nurse Internal Medicine 08/08/24 documented as of this encounter
--- OUTSIDE RECORDS SUMMARY | 2025-05-13 20:17 | XMS_ITS | Encounter Summary ---
Author Organization [employer] Address [address] [place] [address] Care Team Providers Care Medical Accounting Clerk Name Role Phone Emily Stern MD Primary Care Provider [phone] Susan Chow RN Unavailable [phone] Reason for Referral * Imaging (Routine) - Closed Specialty Diagnoses / Procedures Referred By Contac t Referred To Contact Diagnoses Left lower quadrant abdominal pain Procedures CT Abdomen Pelvis w/ Contrast Emily Stern MD [address] [place] [address] Phone: tel: fax: [address] [address] Phone: tel: fax: Referral ID Status Reason Start Date Expiration Date Visits Re quested Visits Authorized [id number] Closed 10/26/2022 10/26/2023 1 1 Encounter Details Date Type Department Care Team (Late st Contact Info) Description 10/26/[address] [facility] [address] [place] [address] [phone] Emily Stern MD [address] [place] [address] [phone] Left lower quadrant abdominal pain (Primary Dx); Acquired hypothyroidism; Hypercholesterolemia Social History Tobacco Use Types Packs/Day Years [...] Upcoming Encounters Date Type Department Care Team ([facility] st Contact Info) Description 06/02/2025 3:[address] [facility] [address] [place] [address] Susan Chow RN [address] [place] [address] Scheduled Orders Name Type Priority Associated Diagnoses Orde r Schedule CT Abdomen Pelvis w/ Contrast Imaging Routine Left lower quadrant abdominal pain Expected: 10/26/2022, Expires: 10/27/2023 TSH W/Reflex to FT4 Lab Routine Acquired hypothyroidism Expected: 11/05/2022 (Approximate), Expires: 11/06/2023 documented as of this encounter Procedures Procedure Name Priority Date/Time Associated Diagnosis Comments TSH W/REFLEX TO FT4 Routine 05/17/2023 12:45 PM EST Acquired hypothyroidism T4, FREE Routine 05/17/2023 12:45 PM EST LIPID PANEL, STANDARD Routine 05/17/2023 12:45 PM EST Hypercholesterolemia TSH W/REFLEX TO FT4 Routine 11/04/2022 11:59 AM EDT Acquired hypothyroidism T4, FREE Routine 11/04/2022 11:59 AM EDT documented in this encounter Results * T4, Free (05/17/2023 12:45 PM EST) T4, Free 1.1 0.8 - 1.8 ng/dL [facility] 05/17/2023 12:4 5 PM EST 05/17/2023 12:47 PM EST Narrative [facility] - 05/18/2023 1:32 AM EST FASTING:YES FASTING: YES Emily Stern MD LAB BLOOD ORDERABLES Final Result Performing Organization Address City/[facility]/ZIP Co de Phone Number ELIAN Gutierrez [address], [place] [address] [facility] [place] [facility] [address] [place] [address] * Lipid Panel, Standard (05/17/2023 12:45 PM EST) [facility] Cholesterol, Total 137 <200 mg/dL [facility] [place] [facility] HDL Cholesterol 54 > OR = 50 mg/dL [facility] [place] [facility] Triglycerides 138 <150 mg/dL [facility] [place] [facility] LDL Cholesterol 61 mg/dL [facility] [place] [facility] Comment: Reference range: <100 Desirable range <100 mg/dL for primary prevention; <70 mg/dL for patients with CHD or diabetic patients with > or = 2 CHD risk factors. LDL-C is now calculated using the Aman-Makayla calculation, which is a validated novel method providing better accuracy than the Friedewald equation in the estimation of LDL-C. Aman SS et al. NGA. 2013;310(19): 4587-9542 (http://education.Assmbly/faq/VJO425) Chol/HDLC Ratio 2.5 <5.0 (calc) [facility] [place] [facility] Non-HDL Cholesterol 83 <130 mg/dL [facility] [place] [facility] Comment: For patients with diabetes plus 1 major ASCVD risk factor, treating to a non-HDL-C goal of <100 mg/dL (LDL-C of <70 mg/dL) is considered a therapeutic option. Blood Venous blood specimen / Unknown 05/17/2023 12:45 PM EST 05/17/2023 12:47 PM EST Narrative [facility] - 05/18/2023 1:32 AM EST FASTING:YES FASTING: YES Emily Stern MD LAB BLOOD ORDERABLES Final Result Performing Organization Address City/[facility]/ZIP Co de Phone Number ELIAN Gutierrez [address], [place] [address] [facility] [place] [facility] [address] [place] [address] * (ABNORMAL) TSH W/Reflex to FT4 (05/17/2023 12:45 PM EST) TSH w/Reflex to FT4 8.33(H) 0.40 - 4.50 mIU/L [facility] Blood 05/17/2023 12:4 5 PM EST 05/17/2023 12:47 PM EST Narrative [facility] - 05/18/2023 1:32 AM EST FASTING:YES FASTING: YES us Emily Stern MD LAB BLOOD ORDERABLES Final Result Performing Organization Address City/[facility]/ZIP Co de Phone Number [facility] [address] [place] [address], [facility] [place] [address] [facility] [place] [facility] [address] [place] [address] * T4, Free (11/04/2022 11:59 AM EDT) T4, Free 1.1 0.8 - 1.8 ng/dL [facility] [place] [facility] 11/04/2022 11:5 9 AM EDT 11/04/2022 11:59 AM EDT Emily Stern MD LAB BLOOD ORDERABLES Final Result [facility] [address] [place] [address], [facility] [place] [address] [facility] [place] [facility] [address] [place] [phone] * (ABNORMAL) TSH W/Reflex to FT4 (11/04/2022 11:59 AM EDT) TSH w/Reflex to FT4 10.95(H) 0.40 - 4.50 mIU/L [facility] [place] [facility] Blood 11/04/2022 11:5 9 AM EDT 11/04/2022 11:59 AM EDT Emily Stern MD LAB BLOOD ORDERABLES Final Result [facility] [address], [place] [address] [facility] [address] [place] [address] documented in this encounter Visit Diagnoses Diagnosis Left lower quadrant abdominal pain- Primary Acquired hypothyroidism Unspecified hypothyroidism Hypercholesterolemia Pure hypercholesterolemia documented in this encounter Care Teams Medical Accounting Clerk Relationship Specialty Start Date End Date Emily Stern MD [address] [place] [address] PCP - General Internal Medicine 07/04/13 Susan Chow, [facility] [address] [place] [phone] Registered Nurse Internal Medicine 08/08/24 documented as of this encounter
--- OUTSIDE RECORDS SUMMARY | 2025-05-13 20:17 | XMS_ITS | Encounter Summary ---
Author Organization [employer] Address [address] [address] Care Team Providers Care Physical Therapy Technician Name Role Phone Emily Stern MD Primary Care Provider [phone] Susan Chow RN Unavailable [phone] Reason for Visit * Reason Onset Date Comments Referral 10/16/2023 Encounter Details Date Type Department Care Team (Late st Contact Info) Description 10/16/2023 Telephone [facility] [address] [place] [address] Emily Stern MD [address] [place], [place] [phone] Referral Social History Tobacco Use Types Packs/Day Years [...] encounter Miscellaneous Notes * Telephone Encounter - Amber Mendoza RN - 10/17/2023 8:53 AM EDT Please review and advise if new PT referral can be generated to [facility] Pt states prior referral is now . * Telephone Encounter - Skip Haque - 10/16/2023 4:42 PM EDT Tc from pt attempted to be seen with [facility] physical therapy but when calling to schedule pt is informed that is has been 3 weeks since last visit and they would need a new referral. [facility] scheduled an appt with pt for 11/13 so they would need referral before then. If any questions you can contact pt at [phone]. documented in this encounter Plan of Treatment Upcoming Encounters Date Type Department Care Team (Late st Contact Info) Description 06/02/2025 3:00 PM EST Telemedicine [facility] [address] [place] [address] Susan Chow RN [address] [place] [address] documented as of this encounter Visit Diagnoses Not on filedocumented in this encounter Care Teams Physical Therapy Technician Relationship Specialty Start Date End Date Emily Stern MD [address] [place] [address] PCP - General Internal Medicine 07/04/13 Susan Chow RN [address] [place], [place] [phone] Registered Nurse Internal Medicine 08/08/24 documented as of this encounter
== END 2025-05-13 15:03 | disposition home or self-care (01) ==
LOC: HO.HGI 14:16
PROVIDERS: PCP Internal Medicine; Visit Provider Nurse Practitioner
DX: K58.0 Irritable bowel syndrome with diarrhea (principal); Z53.20 Procedure and treatment not carried out because of patient's decision for unspecified reasons
CPT/HCPCS: 99213

== ENCOUNTER → 2025-05-13 14:16 | Outpatient (BNVA) | payer MEDICAID, SELFPAY | PROVIDERS: PCP Internal Medicine; Visit Provider Nurse Practitioner | DX: K58.0 Irritable bowel syndrome with diarrhea (principal); K21.9 Gastro-esophageal reflux disease without esophagitis; R10.9 Unspecified abdominal pain; Z53.20 Procedure and treatment not carried out because of patient's decision for unspecified reasons | CPT/HCPCS: 99212 ==